=== PATIENT | male | born 1930 | race Asian ===

== ENCOUNTER 2017-08-13 10:25 | Inpatient (IN) | payer OTHER ==
[2017-08-13 10:31] VITALS: BMI 24.6
--- NOTE | 2017-08-13 11:45 | PDOC ---
History of Present Illness - General Chief Complaint: Shortness of Breath Stated Complaint: FOOT SWELLING/PAIN/SHORTNESS OF BREATH Time Seen by Provider: 08/13/17 10:32 - History of Present Illness Initial Comments: 08/13/17 12:25 "The patient is an 86-year-old male, with a significant HTN, gout, and renal insufficiency, who presents to the ED with one week of bilateral lower extremity (worse on the left-side) swelling and shortness of breath on exertion. Pts pain a 4/10 in severity and is worsened when he applies weight to his L foot. Pt experienced similar symptoms in the past and attributed it to gout. He states that the swelling resolved after he took a course of prednisone. He denies any travel or recent injuries. He denies having a history of blood clots or heart failure. Denies F/C. He denies any chest pain or palpitations. He denies any fever, chills, nausea, vomiting, diarrhea, or abdominal pain. Ldr Nurse: Dr. Bebeto Hernandez " Past History - Past Medical History Allergies/Adverse Reactions: Allergies Allergy/AdvReac Type Severity Reaction Status Date / Time No Known Allergies Allergy Verified 08/13/17 10:31 Home Medications: Ambulatory Orders Acetaminophen [Tylenol Arthritis] 650 mg PO Q6H PRN 08/13/17 Amlodipine Besylate 5 mg PO DAILY 08/13/17 Aspirin [ASA -] 81 mg PO DAILY 08/13/17 Sodium Polystyrene Sulfonate [Kayexalate -] 15 gm PO WEEKLY 08/13/17 Allopurinol [Zyloprim -] 100 mg PO BID #60 tablet 08/16/17 Prednisone [Deltasone -] See Taper PO ASDIR #39 tablet 08/16/17 COPD: No HTN: Yes Hypercholesterolemia: Yes Kidney Stones: Yes (Chronic renal failure) Other medical history: Gout, Arthritis - Suicide/Smoking/Psychosocial Hx Smoking History: Never smoked Information on smoking cessation initiated: No Hx Alcohol Use: No Drug/Substance Use Hx: No Substance Use Type: None Review of Systems - Review of Systems Comments:: 08/13/17 12:26 "GENERAL/CONSTITUTIONAL: No fever or chills. No weakness. HEAD, EYES, EARS, NOSE AND THROAT: No change in vision. No ear pain or discharge. No sore throat. CARDIOVASCULAR: (+)shortness of breath. No chest pain. RESPIRATORY: No cough, wheezing, or hemoptysis. GASTROINTESTINAL: No nausea, vomiting, diarrhea or constipation. GENITOURINARY: No dysuria, frequency, or change in urination. MUSCULOSKELETAL: No joint swelling or pain. No neck or back pain. EXTREMITIES: (+)bilateral lower extremity swelling. SKIN: No rash NEUROLOGIC: No headache, vertigo, loss of consciousness, or change in strength/ sensation. ENDOCRINE: No increased thirst. No abnormal weight change. HEMATOLOGIC/LYMPHATIC: No anemia, easy bleeding, or history of blood clots. ALLERGIC/IMMUNOLOGIC: No hives or skin allergy. " *Physical Exam - Vital Signs Last Vital Signs Temp Pulse Resp BP Pulse Ox 98.1 F 120 H 20 160/76 96 08/13/17 10:28 08/13/17 10:28 08/13/17 10:28 08/13/17 10:57 08/13/17 10:57 - Physical Exam Comments: 08/13/17 11:30 "GENERAL: Awake, alert, and fully oriented, in no acute distress HEAD: No signs of trauma EYES: PERRLA, EOMI, sclera anicteric, conjunctiva clear ENT: Auricles normal inspection, hearing grossly normal, nares patent, oropharynx clear without exudates. Moist mucosa NECK: Nontender, no stepoffs, Normal ROM, supple, no lymphadenopathy, JVD, or masses LUNGS: + Bibasilar rales, no wheezes/rhonchi HEART: Regular rate and rhythm, normal S1 and S2, no murmurs, rubs or gallops ABDOMEN: Soft, nontender, normoactive bowel sounds. No guarding, no rebound. No masses EXTREMITIES: +2 PE BLE NEUROLOGICAL: Cranial nerves II through XII intact. 5/5 strength and sensation in all extremities, Normal speech, normal gait SKIN: Warm, Dry, normal turgor, no rashes or lesions noted. " ED Treatment Course - LABORATORY CBC & Chemistry Diagram: 08/16/17 06:58 08/16/17 06:58 - RADIOLOGY Radiology Studies Ordered: Category Date Time Status ANKLE & FOOT-LEFT* [RAD] Stat Radiology 08/13/17 11:08 Ordered CHEST PA & LAT [RAD] Stat Radiology 08/13/17 11:08 Ordered DUPLEX VASCUL US-2LEGS [US] Stat Ultrasound 08/13/17 11:08 Ordered Medical Decision Making - Medical Decision Making 08/13/17 11:32 86 M presenting with L ankle pain, found to have bilateral lower extremity edema and bibasilar rales. Concerning for acute pulmonary edema. Also consider DVT/PE given L ankle pain with slightly asymmetric swelling L>R, with associated tachycardia and tachypnea. - Labs, BNP, ddimer - CXR - LE dopplers 08/13/17 14:33 CBC,CMP WBC 9.7 K/mm3 (4.0-10.0) D 08/13/17 11:00 RBC 4.07 M/mm3 (4.00-5.60) 08/13/17 11:00 Hgb 12.4 GM/dL (11.7-16.9) D 08/13/17 11:00 Hct 39.0 % (35.4-49) D 08/13/17 11:00 MCV 95.9 fl (80-96) 08/13/17 11:00 MCH 30.5 pg (25.7-33.7) 08/13/17 11:00 MCHC 31.8 g/dl (32.0-35.9) L 08/13/17 11:00 RDW 16.4 % (11.9-15.9) H 08/13/17 11:00 Plt Count 373 K/MM3 (134-434) D 08/13/17 11:00 MPV 8.2 fl (7.5-11.1) 08/13/17 11:00 Neutrophils % 75.1 % (42.8-82.8) D 08/13/17 11:00 Lymphocytes % 12.6 % (8-40) D 08/13/17 11:00 Monocytes % 11.1 % (3.8-10.2) H 08/13/17 11:00 Eosinophils % 0.5 % (0-4.5) D 08/13/17 11:00 Basophils % 0.7 % (0-2.0) 08/13/17 11:00 Sodium 140 mmol/L (136-145) 08/13/17 11:00 Potassium 5.1 mmol/L (3.5-5.1) 08/13/17 11:00 Chloride 109 mmol/L (98-107) H 08/13/17 11:00 Carbon Dioxide 21 mmol/L (21-32) 08/13/17 11:00 Anion Gap 10 (8-16) 08/13/17 11:00 BUN 27 mg/dL (7-18) H 08/13/17 11:00 Creatinine 1.7 mg/dL (0.7-1.3) H 08/13/17 11:00 Creat Clearance w eGFR 38.32 (>60) 08/13/17 11:00 Random Glucose 90 mg/dL (74-106) 08/13/17 11:00 Uric Acid 3.9 mg/dL (2.6-7.2) 08/13/17 11:00 Calcium 8.9 mg/dL (8.5-10.1) 08/13/17 11:00 Total Bilirubin 0.4 mg/dL (0.2-1.0) 08/13/17 11:00 AST 10 U/L (15-37) L 08/13/17 11:00 ALT 18 U/L (12-78) 08/13/17 11:00 Alkaline Phosphatase 55 U/L (45-117) 08/13/17 11:00 Creatine Kinase 65 IU/L (39-308) 08/13/17 12:00 Troponin I 0.04 ng/ml (0.00-0.05) 08/13/17 12:00 B-Natriuretic Peptide 1744.79 pg/ml (5-450) H 08/13/17 11:00 Total Protein 7.1 g/dl (6.4-8.2) 08/13/17 11:00 Albumin 3.2 g/dl (3.4-5.0) L 08/13/17 11:00 Trop negative. CXR without evidence of pulmonary edema. However, pt with elevated BNP and cardiomegaly on XR. Consistent with possible new onset CHF. Pt's ddimer also elevated. LE dopplers negative. However, given pt's tachycardia and tachypnea, I still have some suspicion for PE, especially given clear CXR. Will defer CTA for now given elevated Cr. Recommend V/Q scan during admission to r/o PE. Pt started empirically on heparin in ER. Case discussed with Dr. Medina, who is at bedside to evaluate pt. Pt to be admitted to tele. Case discussed in detail with admitting physician including history, physical exam and ancillary studies. Admitting physician has assumed care for the patient and will follow all pending diagnostics and complete the evaluation and treatment. *DC/Admit/Observation/Transfer Diagnosis at time of Disposition: Shortness of breath - Discharge Dispostion Disposition: HOME Condition at time of disposition: Improved Admit: Yes - Prescriptions - Referrals - Patient Instructions - Post Discharge Activity - Attestations Physician Attestion: 08/13/17 15:45 I, Dr. Woodrow Howard MD, attest that this document has been prepared under my direction and personally reviewed by me in its entirety. I further attest, that it accurately reflects all work, treatment, procedures and medical decision -making performed by me.
[2017-08-13 12:10] LABS: VENOUS PC02 40.7 mmHg (38-52); VENOUS PH 7.21 (7.32-7.42)
[2017-08-13 12:11] LABS: BASO % 0.7 % (0-2.0); EOS % 0.5 % (0-4.5); HEMOGLOBIN 12.4 GM/dL (11.7-16.9); LYMPH % 12.6 % (8-40); MCH 30.5 pg (25.7-33.7); MCHC 31.8 g/dl (32.0-35.9); MEAN CELL VOLUME 95.9 fl (80-96); MEAN PLT VOLUME 8.2 fl (7.5-11.1); MONO % 11.1 % (3.8-10.2); NEUT % 75.1 % (42.8-82.8); PLATELET COUNT 373 K/MM3 (134-434); RBC 4.07 M/mm3 (4.00-5.60); RDW 16.4 % (11.9-15.9); VENOUS PO2 59.8 mmHg (28-48); WHITE BLOOD COUNT 9.7 K/mm3 (4.0-10.0)
[2017-08-13 12:15] LABS: ALBUMIN 3.2 g/dl (3.4-5.0); ANION GAP 10 (8-16); BLOOD UREA NITROGEN 27 mg/dL (7-18); CALCIUM 8.9 mg/dL (8.5-10.1); CHLORIDE 109 mmol/L (98-107); CO2 21 mmol/L (21-32); CREATININE 1.7 mg/dL (0.7-1.3); GLUCOSE,RANDOM 90 mg/dL (74-106); POTASSIUM 5.1 mmol/L (3.5-5.1); SGOT/AST 10 U/L (15-37); SGPT/ALT 18 U/L (12-78); SODIUM 140 mmol/L (136-145)
[2017-08-13 12:19] LABS: ALK PHOS 55 U/L (45-117); BILIRUBIN,TOTAL 0.4 mg/dL (0.2-1.0); N-TERMINAL BNP 1744.79 pg/ml (5-450); TOT PROT 7.1 g/dl (6.4-8.2); URIC ACID 3.9 mg/dL (2.6-7.2)
[2017-08-13 12:58] LABS: INR 1.12 (0.82-1.09); PROTHROMBIN TIME (PATIENT) 12.7 SEC (9.98-11.88)
[2017-08-13] MEDS ORDERED: FUROSEMIDE 40 MG/4 ML INJECTABLE VIAL IVPB ONE (14:06)
[2017-08-13] MEDS ORDERED: ENOXAPARIN NA (PORCINE) 80 MG/0.8 ML DISP.SYRIN SQ SCH (14:45)
--- NOTE | 2017-08-13 15:31 | HP ---
CHIEF COMPLAINT: PCP: HISTORY OF PRESENT ILLNESS: ER course was notable for: (1) (2) (3) Recent Travel: PAST MEDICAL HISTORY: PAST SURGICAL HISTORY: Social History: Smoking: Alcohol: Drugs: Family History: Allergies No Known Allergies Allergy (Verified 08/13/17 10:31) HOME MEDICATIONS: Home Medications Medication Instructions Recorded Acetaminophen [Tylenol Arthritis] 650 mg PO Q6H PRN 08/13/17 Allopurinol 300 mg PO DAILY 08/13/17 Amlodipine Besylate 5 mg PO DAILY 08/13/17 Aspirin [ASA -] 81 mg PO DAILY 08/13/17 Lisinopril 10 mg PO DAILY 08/13/17 Sodium Polystyrene Sulfonate 15 gm PO WEEKLY 08/13/17 [Kayexalate] REVIEW OF SYSTEMS CONSTITUTIONAL: Absent: fever, chills, diaphoresis, generalized weakness, malaise, loss of appetite, weight change HEENT: Absent: rhinorrhea, nasal congestion, throat pain, throat swelling, difficulty swallowing, mouth swelling, ear pain, eye pain, visual changes CARDIOVASCULAR: Absent: chest pain, syncope, palpitations, irregular heart rate, lightheadedness , peripheral edema RESPIRATORY: Absent: cough, shortness of breath, dyspnea with exertion, orthopnea, wheezing, stridor, hemoptysis GASTROINTESTINAL: Absent: abdominal pain, abdominal distension, nausea, vomiting, diarrhea, constipation, melena, hematochezia GENITOURINARY: Absent: dysuria, frequency, urgency, hesitancy, hematuria, flank pain, genital pain MUSCULOSKELETAL: Absent: myalgia, arthralgia, joint swelling, back pain, neck pain SKIN: Absent: rash, itching, pallor HEMATOLOGIC/IMMUNOLOGIC: Absent: easy bleeding, easy bruising, lymphadenopathy, frequent infections ENDOCRINE: Absent: unexplained weight gain, unexplained weight loss, heat intolerance, cold intolerance NEUROLOGIC: Absent: headache, focal weakness or paresthesias, dizziness, unsteady gait, seizure, mental status changes, bladder or bowel incontinence PSYCHIATRIC: Absent: anxiety, depression, suicidal or homicidal ideation, hallucinations. PHYSICAL EXAMINATION Vital Signs - 24 hr 08/13/17 08/13/17 08/13/17 10:28 10:57 11:10 Temperature 98.1 F Pulse Rate 120 H Respiratory 20 Rate Blood Pressure 154/84 Blood Pressure 160/76 [Right Arm] O2 Sat by Pulse 97 96 96 Oximetry (%) GENERAL: Awake, alert, and fully oriented, in no acute distress. HEAD: Normal with no signs of trauma. EYES: Pupils equal, round and reactive to light, extraocular movements intact, sclera anicteric, conjunctiva clear. No lid lag. EARS, NOSE, THROAT: Ears normal, nares patent, oropharynx clear without exudates. Moist mucous membranes. NECK: Normal range of motion, supple without lymphadenopathy, JVD, or masses. LUNGS: Breath sounds equal, clear to auscultation bilaterally. No wheezes, and no crackles. No accessory muscle use. HEART: Regular rate and rhythm, normal S1 and S2 without murmur, rub or gallop. ABDOMEN: Soft, nontender, not distended, normoactive bowel sounds, no guarding, no rebound, no masses. No hepatomegaly or splenomegaly. MUSCULOSKELETAL: Normal range of motion at all joints. No bony deformities or tenderness. No CVA tenderness. UPPER EXTREMITIES: 2+ pulses, warm, well-perfused. No cyanosis. No clubbing. No peripheral edema. LOWER EXTREMITIES: 2+ pulses, warm, well-perfused. No calf tenderness. No peripheral edema. NEUROLOGICAL: Cranial nerves II-XII intact. Normal speech. Normal gait. PSYCHIATRIC: Cooperative. Good eye contact. Appropriate mood and affect. SKIN: Warm, dry, normal turgor, no rashes or lesions noted, normal capillary refill. Laboratory Results - last 24 hr 08/13/17 08/13/17 08/13/17 11:00 11:00 11:00 WBC 9.7 D RBC 4.07 Hgb 12.4 D Hct 39.0 D MCV 95.9 MCH 30.5 MCHC 31.8 L RDW 16.4 H Plt Count 373 D MPV 8.2 Neutrophils % 75.1 D Lymphocytes % 12.6 D Monocytes % 11.1 H Eosinophils % 0.5 D Basophils % 0.7 PT with INR INR PTT (Actin FS) 31.0 D-Dimer VBG pH POC VBG pCO2 POC VBG pO2 Mixed VBG HCO3 Sodium 140 Potassium 5.1 Chloride 109 H Carbon Dioxide 21 Anion Gap 10 BUN 27 H Creatinine 1.7 H Creat Clearance w eGFR 38.32 Random Glucose 90 Uric Acid 3.9 Calcium 8.9 Total Bilirubin 0.4 AST 10 L ALT 18 Alkaline Phosphatase 55 Creatine Kinase Troponin I B-Natriuretic Peptide 1744.79 H Total Protein 7.1 Albumin 3.2 L Blood Type Antibody Screen 08/13/17 08/13/17 08/13/17 11:00 11:00 11:07 WBC RBC Hgb Hct MCV MCH MCHC RDW Plt Count MPV Neutrophils % Lymphocytes % Monocytes % Eosinophils % Basophils % PT with INR 12.70 H INR 1.12 PTT (Actin FS) D-Dimer VBG pH 7.21 L* POC VBG pCO2 40.7 POC VBG pO2 59.8 H Mixed VBG HCO3 15.6 L Sodium Potassium Chloride Carbon Dioxide Anion Gap BUN Creatinine Creat Clearance w eGFR Random Glucose Uric Acid Calcium Total Bilirubin AST ALT Alkaline Phosphatase Creatine Kinase Troponin I B-Natriuretic Peptide Total Protein Albumin Blood Type A POSITIVE Antibody Screen Negative 08/13/17 08/13/17 11:31 12:00 WBC RBC Hgb Hct MCV MCH MCHC RDW Plt Count MPV Neutrophils % Lymphocytes % Monocytes % Eosinophils % Basophils % PT with INR INR PTT (Actin FS) D-Dimer 851 H VBG pH POC VBG pCO2 POC VBG pO2 Mixed VBG HCO3 Sodium Potassium Chloride Carbon Dioxide Anion Gap BUN Creatinine Creat Clearance w eGFR Random Glucose Uric Acid Calcium Total Bilirubin AST ALT Alkaline Phosphatase Creatine Kinase 65 Troponin I 0.04 B-Natriuretic Peptide Total Protein Albumin Blood Type Antibody Screen ASSESSMENT/PLAN:
[2017-08-13] MEDS ORDERED: HEPARIN NA (PORCINE) 5,000 UNITS/ML 1ML VIAL IVPUSH PRN ×2 (15:50)
[2017-08-13] MEDS ORDERED: HEPARIN SOD,PORK IN 0.45% NACL 25,000 UNITS/500 ML INFUS.BAG IVPB SCH ×2 (16:00→17:10)
[2017-08-13] MEDS ORDERED: HEPARIN NA (PORCINE) 5,000 UNITS/ML 1ML VIAL ONE (16:16)
[2017-08-13] MEDS ORDERED: HEPARIN INFUSION - 25,000 UNITS/500 ML INFUS.BAG IVPB ONE (16:16)
--- NOTE | 2017-08-13 16:51 | HP ---
CHIEF COMPLAINT: L foot pain Non Destructive Evaluation Specialist: Dr. 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 He has no issues with bearing weight, but endorses chronic ankle swelling. For the past week, this ankle swelling has progressed up to his knees bilaterally. Within that week he also has noticed progressive dyspnea on exertion. He has no history of CHF, years ago has had normal Echos and stress tests. Endorses sleeping with 2 pillows due to "comfort". He denies any chest pain or tightness. Denies history of clots, family history of clots, malignancy. Denies recent immobility. In the ER he was tachycardic with BP 150s/80s. His EKG was notable for S1Q3T3 change without ST/T wave changes. He has mild d-dimer in the 800s, but has negative troponins and is hemodynamically stable. BLLE Duplex was negative. He was prophylactically given treatment dose Lovenox 1mg/kg SQ. Also has BNP of ~ 1800 with mild metabolic acidosis pH 7.21. Given dose of IV Lasix. CXR shows mild pulmonary congestion on my read. Recent Travel: Denies PAST MEDICAL HISTORY: HTN, Gout, CKD Social History: Smoking: Denies Alcohol: Denies Drugs: Denies Family History: No family hx of clots. +Cardiac disease Allergies: No Known Allergies Allergy (Verified 08/13/17 10:31) HOME MEDICATIONS: Home Medications Medication Instructions Recorded Acetaminophen [Tylenol Arthritis] 650 mg PO Q6H PRN 08/13/17 Allopurinol 300 mg PO DAILY 08/13/17 Amlodipine Besylate 5 mg PO DAILY 08/13/17 Aspirin [ASA -] 81 mg PO DAILY 08/13/17 Lisinopril 10 mg PO DAILY 08/13/17 Sodium Polystyrene Sulfonate 15 gm PO WEEKLY 08/13/17 [Kayexalate] REVIEW OF SYSTEMS CONSTITUTIONAL: Absent: fever, chills, diaphoresis, generalized weakness, malaise, loss of appetite, weight change HEENT: Absent: rhinorrhea, nasal congestion, throat pain, throat swelling, difficulty swallowing, mouth swelling, ear pain, eye pain, visual changes CARDIOVASCULAR: Absent: chest pain, syncope, palpitations, irregular heart rate, lightheadedness , peripheral edema RESPIRATORY: Absent: cough, shortness of breath, dyspnea with exertion, orthopnea, wheezing, stridor, hemoptysis GASTROINTESTINAL: Absent: abdominal pain, abdominal distension, nausea, vomiting, diarrhea, constipation, melena, hematochezia GENITOURINARY: Absent: dysuria, frequency, urgency, hesitancy, hematuria, flank pain, genital pain MUSCULOSKELETAL: Absent: myalgia, arthralgia, joint swelling, back pain, neck pain SKIN: Absent: rash, itching, pallor HEMATOLOGIC/IMMUNOLOGIC: Absent: easy bleeding, easy bruising, lymphadenopathy, frequent infections ENDOCRINE: Absent: unexplained weight gain, unexplained weight loss, heat intolerance, cold intolerance NEUROLOGIC: Absent: headache, focal weakness or paresthesias, dizziness, unsteady gait, seizure, mental status changes, bladder or bowel incontinence PSYCHIATRIC: Absent: anxiety, depression, suicidal or homicidal ideation, hallucinations. 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 NEURO: CN 2-12 intact, no sensation or MSK deficits Laboratory Last Values WBC 9.7 K/mm3 (4.0-10.0) D 08/13/17 11:00 RBC 4.07 M/mm3 (4.00-5.60) 08/13/17 11:00 Hgb 12.4 GM/dL (11.7-16.9) D 08/13/17 11:00 Hct 39.0 % (35.4-49) D 08/13/17 11:00 MCV 95.9 fl (80-96) 08/13/17 11:00 MCH 30.5 pg (25.7-33.7) 08/13/17 11:00 MCHC 31.8 g/dl (32.0-35.9) L 08/13/17 11:00 RDW 16.4 % (11.9-15.9) H 08/13/17 11:00 Plt Count 373 K/MM3 (134-434) D 08/13/17 11:00 MPV 8.2 fl (7.5-11.1) 08/13/17 11:00 Neutrophils % 75.1 % (42.8-82.8) D 08/13/17 11:00 Lymphocytes % 12.6 % (8-40) D 08/13/17 11:00 Monocytes % 11.1 % (3.8-10.2) H 08/13/17 11:00 Eosinophils % 0.5 % (0-4.5) D 08/13/17 11:00 Basophils % 0.7 % (0-2.0) 08/13/17 11:00 PT with INR 12.70 SEC (9.98-11.88) H 08/13/17 11:00 INR 1.12 (0.82-1.09) 08/13/17 11:00 PTT (Actin FS) 31.0 SECONDS (26.9-34.4) 08/13/17 11:00 D-Dimer 851 ng/ml (<200-235) H 08/13/17 11:31 VBG pH 7.21 (7.32-7.42) L* 08/13/17 11:00 POC VBG pCO2 40.7 mmHg (38-52) 08/13/17 11:00 POC VBG pO2 59.8 mmHg (28-48) H 08/13/17 11:00 Mixed VBG HCO3 15.6 meq/L (19-25) L 08/13/17 11:00 Sodium 140 mmol/L (136-145) 08/13/17 11:00 Potassium 5.1 mmol/L (3.5-5.1) 08/13/17 11:00 Chloride 109 mmol/L (98-107) H 08/13/17 11:00 Carbon Dioxide 21 mmol/L (21-32) 08/13/17 11:00 Anion Gap 10 (8-16) 08/13/17 11:00 BUN 27 mg/dL (7-18) H 08/13/17 11:00 Creatinine 1.7 mg/dL (0.7-1.3) H 08/13/17 11:00 Creat Clearance w eGFR 38.32 (>60) 08/13/17 11:00 Random Glucose 90 mg/dL (74-106) 08/13/17 11:00 Uric Acid 3.9 mg/dL (2.6-7.2) 08/13/17 11:00 Calcium 8.9 mg/dL (8.5-10.1) 08/13/17 11:00 Total Bilirubin 0.4 mg/dL (0.2-1.0) 08/13/17 11:00 AST 10 U/L (15-37) L 08/13/17 11:00 ALT 18 U/L (12-78) 08/13/17 11:00 Alkaline Phosphatase 55 U/L (45-117) 08/13/17 11:00 Creatine Kinase 65 IU/L (39-308) 08/13/17 12:00 Troponin I 0.04 ng/ml (0.00-0.05) 08/13/17 12:00 B-Natriuretic Peptide 1744.79 pg/ml (5-450) H 08/13/17 11:00 Total Protein 7.1 g/dl (6.4-8.2) 08/13/17 11:00 Albumin 3.2 g/dl (3.4-5.0) L 08/13/17 11:00 Blood Type A POSITIVE 08/13/17 11:07 Antibody Screen Negative 08/13/17 11:07 Home Medication List Medication Instructions Recorded Confirmed Type Acetaminophen [Tylenol Arthritis] 650 mg PO Q6H PRN 08/13/17 08/13/17 History Allopurinol 300 mg PO DAILY 08/13/17 08/13/17 History Amlodipine Besylate 5 mg PO DAILY 08/13/17 08/13/17 History Aspirin [ASA -] 81 mg PO DAILY 08/13/17 08/13/17 History Lisinopril 10 mg PO DAILY 08/13/17 08/13/17 History Sodium Polystyrene Sulfonate 15 gm PO WEEKLY 08/13/17 08/13/17 History [Kayexalate] Active Medications Generic Name Dose Route Start Last Admin Trade Name Freq PRN Reason Stop Dose Admin Acetaminophen 650 mg 08/13/17 16:06 Tylenol - PO Q6H PRN PAIN Allopurinol 300 mg 08/14/17 10:00 Zyloprim - PO DAILY [facility] Amlodipine Besylate 5 mg 08/14/17 10:00 Norvasc - PO DAILY [facility] Aspirin 81 mg 08/14/17 10:00 Asa - PO DAILY [facility] Heparin Sodium (Porcine) 1,000 unit 08/13/17 15:50 Heparin - IVPUSH PRN PRN Heparin Heparin Sodium (Porcine) 5,000 unit 08/13/17 15:50 08/13/17 16:36 Heparin - IVPUSH 5,000 unit PRN PRN Administration Heparin HEPARIN SOD,PORK IN 0.45% NACL 25,000 units in 500 mls @ 20 mls/hr 08/13/17 17 :10 Heparin-1/2ns 25,000 Units/500 IVPB TITR JEISON Protocol 1,000 UNITS/HR Lisinopril 10 mg 08/14/17 10:00 Prinivil PO DAILY [facility] Sodium Polystyrene Sulfonate 15 gm 08/13/17 16:15 Kayexalate - PO WEEKLY [facility] ASSESSMENT/PLAN: 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 # L Foot Pain - Consistent with prior gouty flairs. L Foot/ankle XR negative for fracture. Will continue Allopurinol and start Tylenol 650 PRN. Currently feeling much better. Will order Physical Therapy # SOB r/o PE - Likely secondary to pulmonary congestion from R heart strain, consistent with EKG S1Q3T3 pattern. This could be secondary to possible subacute PE although patient is low risk with Well's score is 1.5 and D-dimer normal for patient's age. Due to the suspicion, he received Lovenox 1mg/kg load, and we will start Hep gtt w/ PE protocol. Will obtain V/Q due to CKD. If patient has a PE, it is unprovoked and he will need hypercoag workup. Will obtain Echo to assess R heart strain. # Sinus Tachycardia - Could be secondary to the possible subacute PE. Unlikely due to pain, since pain is now relieved. Preliminary echo results show possible density near mitral valve cannot r/o vegetation. Patient is not septic, and without a murmur , but will obtain blood cultures to be sure there is no endocarditis. # CKD Stage 3 - Cr is 1.7, around patient's baseline of 1.8-2.1. Continue to monitor # Hx of HTN - Can continue Lisinopril 10 and Norvasc 5 since patient is mildly hypertensive. # FEN - No IVF, elec wnl, sodium controlled diet # PPx - Heparin gtt PE protocol, no GI prophylaxis, PT ordered # Dispo - Admit to Tele. Await results of Echo and V/Q. d/w Dr Ba and Dr Mauricio Negron MD - PGY1 Internal Medicine Resident Visit type - Emergency Visit Emergency Visit: No - New Patient This patient is new to me today: No - Critical Care Critical Care patient: No
--- NOTE | 2017-08-13 16:51 | MSN ---
Progress Note (short form) - Note Progress Note: SUBJECTIVE CC: L foot pain and B/L LE swelling HPI: 86 y/o M with PMHx HTN, gout, CKD stage III, who presented to ED with c/o of L foot pain, B/L leg swelling, and dyspnea on exertion. He states the B/L leg swelling and MANCILLA on exertion started 1 week ago and swelling has progressively extended up to his knees. He has been sleeping with 2 pillows at night for "years" and attributes it to comfort/habit. He reports chronic pain in his feet 2/2 gout; however, this severe pain in L plantar foot began one week ago and is worse in the AM. Pain worsens with pressure and rates it a 4/ 10. He states he has had this pain before during gout attacks and typically experiences swelling in his ankles which successfully resolves with prednisone and Tylenol arthritis. Pt denies chest pain, orthopnea, nausea, vomiting, hx blood clots, hx heart failure, recent travel, and prolonged periods of being immobile. Pt was given 1 dose Lasix in ER and 1 dose Lovenox SQ for empiric tx of PE. Imaging was done; detailed below. OBJECTIVE Last Vital Signs Temp Pulse Resp BP Pulse Ox 98.1 F 120 H 20 160/76 96 08/13/17 10:28 08/13/17 10:28 08/13/17 10:28 08/13/17 10:57 08/13/17 11:10 Eyes: EOMI. PERRL. Neck: B/L JVD, worse when lying flat. Heart: Tachycardic rate; regular rhythm. S1, S2. No murmurs appreciated. Lungs: Mild expiratory wheezing and crackles in bibasilar lobes. Upper lobes clear to auscultation. Abdomen: Nondistended, nontender to palpation. Extremities: 2+ pitting edema at b/l medial malleoli; 1+ pitting edema up to b/ l patella. DP pulse 2+ b/l. No cyanosis or clubbing noted. No edema noted on b/ l UE. 5/5 muscle strength throughout UE and LE. 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 Tophi noted on R and L hallux. Tophi on fingers. CBC, BMP 08/13/17 11:00 08/13/17 11:00 Anion Gap Anion Gap 10 (8-16) 08/13/17 11:00 Abnormal Lab Results 08/13/17 08/13/17 08/13/17 11:00 11:00 11:00 MCHC 31.8 L RDW 16.4 H Monocytes % 11.1 H PT with INR 12.70 H D-Dimer ABG pCO2 at Pt Temp ABG HCO3 ABG O2 Content ABG Base Excess VBG pH POC VBG pO2 Mixed VBG HCO3 Chloride 109 H BUN 27 H Creatinine 1.7 H AST 10 L B-Natriuretic Peptide 1744.79 H Albumin 3.2 L 08/13/17 08/13/17 08/13/17 11:00 11:31 16:50 MCHC RDW Monocytes % PT with INR D-Dimer 851 H ABG pCO2 at Pt Temp 30.7 L ABG HCO3 18.8 L ABG O2 Content 12.9 L ABG Base Excess -4.7 L VBG pH 7.21 L* POC VBG pO2 59.8 H Mixed VBG HCO3 15.6 L Chloride BUN Creatinine AST B-Natriuretic Peptide Albumin ER significant for: 1. Doppler LE: Negative 2. Troponin: Negative 3. CXR: No evidence of pulmonary edema. Mild vascular congestion b/l. Cardiomegaly. 4. BNP: elevated 5. EKG: S1Q3T3 pattern. Tachycardic at 120 BPM. Sinus rhythm. Active Medications Generic Name Dose Route Start Last Admin Trade Name Freq PRN Reason Stop Dose Admin Acetaminophen 650 mg 08/13/17 16:06 Tylenol - PO Q6H PRN PAIN Allopurinol 300 mg 08/14/17 10:00 Zyloprim - PO DAILY [facility] Amlodipine Besylate 5 mg 08/14/17 10:00 Norvasc - PO DAILY [facility] Aspirin 81 mg 08/14/17 10:00 Asa - PO DAILY [facility] Heparin Sodium (Porcine) 1,000 unit 08/13/17 15:50 Heparin - IVPUSH PRN PRN Heparin Heparin Sodium (Porcine) 5,000 unit 08/13/17 15:50 08/13/17 16:36 Heparin - IVPUSH 5,000 unit PRN PRN Administration Heparin HEPARIN SOD,PORK IN 0.45% NACL 25,000 units in 500 mls @ 20 mls/hr 08/13/17 17 :10 Heparin-1/2ns 25,000 Units/500 IVPB TITR JEISON Protocol 1,000 UNITS/HR Lisinopril 10 mg 08/14/17 10:00 Prinivil PO DAILY [facility] Sodium Polystyrene Sulfonate 15 gm 08/13/17 16:15 Kayexalate - PO WEEKLY [facility] Home Medications Medication Instructions Recorded Acetaminophen [Tylenol Arthritis] 650 mg PO Q6H PRN 08/13/17 Allopurinol 300 mg PO DAILY 08/13/17 Amlodipine Besylate 5 mg PO DAILY 08/13/17 Aspirin [ASA -] 81 mg PO DAILY 08/13/17 Lisinopril 10 mg PO DAILY 08/13/17 Sodium Polystyrene Sulfonate 15 gm PO WEEKLY 08/13/17 [Kayexalate] ASSESSMENT 86 y/o M with PMHx HTN, gout, CKD stage III, who presented to ED with c/o of L foot pain, B/L leg swelling, and dyspnea on exertion with 1 week duration. EKG findings are concerning for R heart strain from possible PE leading to R heart failure and b/l LE edema, b/l JVD. PLAN 1. 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 SOB, B/L LE edema likely 2/2 unprovoked PE - heparin gtt started in ER; will change to PE dosage for suspected unprovoked PE - PTT ordered; need to f/u and monitor for HIT - S1Q3T3 on EKG; tachycardic, Wells 1.5 - Echo, V/Q scan ordered to evaluate for PE; no CTA since pt has CKD with elevated Cr 3. CKD - urine sodium - Mg2+, PO4-, BMP to evaluate kidney function 4. HTN - Continue home Norvasc 5, Lisinopril 10; high BP in ER, will need to adjust BP meds accordingly 5. Gout - Continue home Allopurinol - Tylenol PRN pain; pain well controlled as per pt 6. FEN - fluids: no fluids necessary - electrolytes: wnl, monitor - nutrition: low sodium diet Dispo: Gillian Johnston, OMS-3
--- NOTE | 2017-08-13 17:07 | HP ---
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 Patient has a history of gout effected left great tow and ankle, which he presumed that was where pain and swelling was coming from. After no improvement from steroid trial and increasing shortness of breath , he was then provoke dot come to the hospital. He denies chest pain, nausea, vomiting, numbness tingling, fever chills or associated symptoms. He denies sedentary lifestyle. ER course was notable for: ECG sinus tachycradia; S1Q2T3 inversion; d dimer elevated; cxr with cardiomegaly ; given lasix 40IVP x1 in ED. Recent Travel: no PAST MEDICAL HISTORY: HTN, GOUT, CKD stage 3B PAST SURGICAL HISTORY: Social History: Smoking:no Alcohol:no Drugs: no Family History: Allergies No Known Allergies Allergy (Verified 08/13/17 10:31) HOME MEDICATIONS: Home Medications Medication Instructions Recorded Acetaminophen [Tylenol Arthritis] 650 mg PO Q6H PRN 08/13/17 Allopurinol 300 mg PO DAILY 08/13/17 Amlodipine Besylate 5 mg PO DAILY 08/13/17 Aspirin [ASA -] 81 mg PO DAILY 08/13/17 Lisinopril 10 mg PO DAILY 08/13/17 Sodium Polystyrene Sulfonate 15 gm PO WEEKLY 08/13/17 [Kayexalate] REVIEW OF SYSTEMS CONSTITUTIONAL: Absent: fever, chills, diaphoresis, generalized weakness, malaise, loss of appetite, weight change HEENT: Absent: rhinorrhea, nasal congestion, throat pain, throat swelling, difficulty swallowing, mouth swelling, ear pain, eye pain, visual changes CARDIOVASCULAR: Positive: palpations, b/l leg swelling Absent: chest pain, syncope, palpitations, irregular heart rate, lightheadedness , peripheral edema RESPIRATORY: Absent: cough, shortness of breath, dyspnea with exertion, orthopnea, wheezing, stridor, hemoptysis GASTROINTESTINAL: Absent: abdominal pain, abdominal distension, nausea, vomiting, diarrhea, constipation, melena, hematochezia GENITOURINARY: Absent: dysuria, frequency, urgency, hesitancy, hematuria, flank pain, genital pain MUSCULOSKELETAL: Positive: Left foot pain Absent: myalgia, arthralgia, joint swelling, back pain, neck pain SKIN: Absent: rash, itching, pallor HEMATOLOGIC/IMMUNOLOGIC: Absent: easy bleeding, easy bruising, lymphadenopathy, frequent infections ENDOCRINE: Absent: unexplained weight gain, unexplained weight loss, heat intolerance, cold intolerance NEUROLOGIC: Absent: headache, focal weakness or paresthesias, dizziness, unsteady gait, seizure, mental status changes, bladder or bowel incontinence PSYCHIATRIC: Absent: anxiety, depression, suicidal or homicidal ideation, hallucinations. PHYSICAL EXAMINATION Vital Signs - 24 hr 08/13/17 08/13/17 08/13/17 10:28 10:57 11:10 Temperature 98.1 F Pulse Rate 120 H Respiratory 20 Rate Blood Pressure 154/84 Blood Pressure 160/76 [Right Arm] O2 Sat by Pulse 97 96 96 Oximetry (%) GENERAL: Awake, alert, and fully oriented, in no acute distress. HEAD: Normal with no signs of trauma. EYES: Pupils equal, round and reactive to light, extraocular movements intact, sclera anicteric, conjunctiva clear. No lid lag. EARS, NOSE, THROAT: Ears normal, nares patent, oropharynx clear without exudates. Moist mucous membranes. NECK: Normal range of motion, supple without lymphadenopathy, JVD, or masses. LUNGS: Breath sounds equal, d/l basal rales. No wheezes, and no crackles. No accessory muscle use. HEART: sinus tach; regular rhythm, normal S1 and S2 without murmur, rub or gallop. ABDOMEN: Soft, nontender, not distended, normoactive bowel sounds, no guarding, no rebound, no masses. No hepatomegaly or splenomegaly. MUSCULOSKELETAL: Normal range of motion at all joints. No bony deformities or tenderness. No CVA tenderness. Left foot pain with palpation of palmar aspect UPPER EXTREMITIES: 2+ pulses, warm, well-perfused. No cyanosis. No clubbing. Bilateral mild edema; L>R of LE; small area of right great toe erythema; tener to touch LOWER EXTREMITIES: 2+ pulses, warm, well-perfused. No calf tenderness. No peripheral edema. NEUROLOGICAL: Cranial nerves II-XII intact. Normal speech. strength 5/5 throughout; all reflexes intact; sensation intact throughout; gait not observed PSYCHIATRIC: Cooperative. Good eye contact. Appropriate mood and affect. SKIN: Warm, dry, normal turgor, no rashes or lesions noted, normal capillary refill. Laboratory Results - last 24 hr 08/13/17 08/13/17 08/13/17 11:00 11:00 11:00 WBC 9.7 D RBC 4.07 Hgb 12.4 D Hct 39.0 D MCV 95.9 MCH 30.5 MCHC 31.8 L RDW 16.4 H Plt Count 373 D MPV 8.2 Neutrophils % 75.1 D Lymphocytes % 12.6 D Monocytes % 11.1 H Eosinophils % 0.5 D Basophils % 0.7 PT with INR INR PTT (Actin FS) 31.0 D-Dimer VBG pH POC VBG pCO2 POC VBG pO2 Mixed VBG HCO3 Sodium 140 Potassium 5.1 Chloride 109 H Carbon Dioxide 21 Anion Gap 10 BUN 27 H Creatinine 1.7 H Creat Clearance w eGFR 38.32 Random Glucose 90 Uric Acid 3.9 Calcium 8.9 Total Bilirubin 0.4 AST 10 L ALT 18 Alkaline Phosphatase 55 Creatine Kinase Troponin I B-Natriuretic Peptide 1744.79 H Total Protein 7.1 Albumin 3.2 L Blood Type Antibody Screen 08/13/17 08/13/17 08/13/17 11:00 11:00 11:07 WBC RBC Hgb Hct MCV MCH MCHC RDW Plt Count MPV Neutrophils % Lymphocytes % Monocytes % Eosinophils % Basophils % PT with INR 12.70 H INR 1.12 PTT (Actin FS) D-Dimer VBG pH 7.21 L* POC VBG pCO2 40.7 POC VBG pO2 59.8 H Mixed VBG HCO3 15.6 L Sodium Potassium Chloride Carbon Dioxide Anion Gap BUN Creatinine Creat Clearance w eGFR Random Glucose Uric Acid Calcium Total Bilirubin AST ALT Alkaline Phosphatase Creatine Kinase Troponin I B-Natriuretic Peptide Total Protein Albumin Blood Type A POSITIVE Antibody Screen Negative 08/13/17 08/13/17 11:31 12:00 WBC RBC Hgb Hct MCV MCH MCHC RDW Plt Count MPV Neutrophils % Lymphocytes % Monocytes % Eosinophils % Basophils % PT with INR INR PTT (Actin FS) D-Dimer 851 H VBG pH POC VBG pCO2 POC VBG pO2 Mixed VBG HCO3 Sodium Potassium Chloride Carbon Dioxide Anion Gap BUN Creatinine Creat Clearance w eGFR Random Glucose Uric Acid Calcium Total Bilirubin AST ALT Alkaline Phosphatase Creatine Kinase 65 Troponin I 0.04 B-Natriuretic Peptide Total Protein Albumin Blood Type Antibody Screen Current Medications Generic Name Dose Route Start Last Admin Trade Name Freq PRN Reason Stop Dose Admin Acetaminophen 650 mg 08/13/17 16:06 Tylenol - PO Q6H PRN PAIN Allopurinol 300 mg 08/14/17 10:00 Zyloprim - PO DAILY [facility] Amlodipine Besylate 5 mg 08/14/17 10:00 Norvasc - PO DAILY [facility] Aspirin 81 mg 08/14/17 10:00 Asa - PO DAILY [facility] Heparin Sodium (Porcine) 1,000 unit 08/13/17 15:50 Heparin - IVPUSH PRN PRN Heparin Heparin Sodium (Porcine) 5,000 unit 08/13/17 15:50 08/13/17 16:36 Heparin - IVPUSH 5,000 unit PRN PRN Administration Heparin HEPARIN SOD,PORK IN 0.45% NACL 25,000 units in 500 mls @ 20 mls/hr 08/13/17 16 :00 08/13/17 16:36 Heparin-1/2ns 25,000 Units/500 IVPB 1,000 units/hr TITR JEISON 20 mls/hr Protocol Administration 1,000 UNITS/HR Lisinopril 10 mg 08/14/17 10:00 Prinivil PO DAILY [facility] Sodium Polystyrene Sulfonate 15 gm 08/13/17 16:15 Kayexalate - PO WEEKLY [facility] ASSESSMENT/PLAN: 86 year old male with a past medical history of hypertension presents with shortness of breath and bilateral leg swelling for the past few days. #shortness of breath secondary to possible CHF/PE: -ECG with S1Q2T3 inversion; sinus tachycardia; d dimer elevated -stat V/Q scan ; (cannot get CTA due to CKD) -stat echo : right heart strain; with pulmonary hypertension; some diastolic dysfunction; small pericardial loculated effusion; cannot r/o vegetation of mitral valve; (this was read by Dr. Soliz while echo was being done:official report pending) -start heparin drip; serial PTT serial troponins -will get blood cultures; in light of possible veg on valve -revival clerk; daily weight; I/Os -Cardio/Pulm consulted -discuss case with IR; eval for TPA if there is PE #Right foot pain with mild leukocytosis; possible secondary to gout attack vs cellulitis vs DVT: -gout attack less likely; uric acid 3.9 (elevated is >5) -elevated d dimer; B/L Doppler negative; getting VQ; on heparin drip -some erythema of right toe; will monitor off antibiotics for now; monitor WBC; fever; bld cultures #hypertension: -continue home norvasc and lisinopril as above Fluids: po monitor; Electrolytes: wnl Diet: cardiac diet VTE: on heparin drip Disposition: telemetry; pending v/q scan ; r/o PE; on heparin drip Case discussed with attending Dr. Ba Visit type - Emergency Visit Emergency Visit: Yes ED Registration Date: 08/13/17 Care time: The patient presented to the Emergency Department on the above date and was hospitalized for further evaluation of their emergent condition. - New Patient This patient is new to me today: Yes Date on this admission: 08/13/17 - Critical Care Critical Care patient: No
[2017-08-13 17:09] LABS: ARTERIAL BLD GAS O2 SATURATION 96.9 % (90-98.9); ARTERIAL BLOOD GAS BASE EXCESS -4.7 meq/l (-2-2); ARTERIAL BLOOD GAS PCO2 30.7 mmHg (35-45); ARTERIAL BLOOD GAS PO2 86.5 mmHg (68-100); CARBOXYHEMOGLOBIN 1.1 gm% (0.5-2.0)
[2017-08-13 17:14] LABS: ALLENS TEST POSITIVE
--- NOTE | 2017-08-13 18:05 | PN ---
Teaching Attending Note Name of Resident: Kristi Negron ATTENDING PHYSICIAN STATEMENT I saw and evaluated the patient. I reviewed the resident's note and discussed the case with the resident. I agree with the resident's findings and plan as documented. SUBJECTIVE:86yo M with PMH CKD stage III, HTN, and gout presented to the ER with worsening pedal edema and dyspnea on exertion x1 week. states he chronically has foot swelling and was being treated for gout in his R foot with allopurinol and steroids and then started to have pain in his L foot. over the past week he developed edema travelling up his legs. denies CP, fever, chills, N /V/C/D OBJECTIVE: Last Vital Signs Temp Pulse Resp BP Pulse Ox 98.1 F 120 H 20 160/76 96 08/13/17 10:28 08/13/17 10:28 08/13/17 10:28 08/13/17 10:57 08/13/17 11:10 General NAD CV S1 S2 tacycardic no murmur Lungs coarse rhonchi, crackles at the bases Abdomen soft NT/ND Extremities 1+ pitting edema B/L LE, pain to L medial malleolus negative rikki sign ASSESSMENT AND PLAN: 86yo M with PMH CKD stage III, HTN, and gout presented to the ER with worsening pedal edema and dyspnea on exertion x1 week 1. SOB- tele admission. high concern for PE however can not rule out new onset CHF due to cardiomegaly seen on CXR. elevated ddimer, negative dopplers, received lasix start heparin ggt. unable to obtain CTA due to CKD. stat bedside echo done showing elevated R heart pressures but no evidence of heart strain. stat VQ scan to evaluate and possible IR intervention. hold further lasix at this time until formal VQ scan done. f/u formal echo report. Cardio and pulmonary consulted 2. Sinus tachycardia- likely due to PE. EKG showing S1Q3T3 consistent with PE. trend cardiac enzymes. check TSH, continuous cardiac monitoring 3. NAG acidosis- check lactic acid. does not have hyperkalemia but takes kayexylate regularly. check urine Na, ABG 4. HTN- start lisinopril and norvasc 5. CKD stage III- at baseline. 6. Gout- on allopurinol 7. DVT ppx- hep ggt
[2017-08-13] MEDS ORDERED: FUROSEMIDE 40 MG/4 ML INJECTABLE VIAL ONE (18:22)
[2017-08-13 18:45] LABS: URINE APPEARANCE CLEAR; URINE BILIRUBIN NEGATIVE (NEGATIVE); URINE BLOOD 1+ (NEGATIVE); URINE COLOR LTYELLOW; URINE GLUCOSE (UA) NEGATIVE (NEGATIVE); URINE KETONE NEGATIVE (NEGATIVE); URINE LEUK ESTERASE NEGATIVE (NEGATIVE); URINE NITRITE NEGATIVE (NEGATIVE); URINE UROBILINOGEN NEGATIVE mg/dL (0.2-1.0)
[2017-08-13 18:49] LABS: URINE PROTEIN 1+ (NEGATIVE)
[2017-08-13 19:04] LABS: URINE BACTERIA RARE /hpf (NONE SEEN); URINE HYALINE CAST 2 /lpf; URINE MUCUS RARE
[2017-08-13] MEDS: ACETAMINOPHEN 325 MG TABLET (FP) PO PRN (20:08)
[2017-08-13] MEDS: HEPARIN NA (PORCINE) 5,000 UNITS/ML 1ML VIAL SQ SCH (21:41)
--- NOTE | 2017-08-13 23:08 | PN ---
Progress Note (short form) - Note Progress Note: Hospitalist team paged at 11:04 that patient's second troponin returned 0.65, an incease from 0.04 earlier. Nurse reported patient sleeping comfortably in bed and not experiencing any chest pain. Will get stat EKG and evaluate patient.
[2017-08-14] MEDS: HEPARIN NA (PORCINE) 5,000 UNITS/ML 1ML VIAL SQ SCH ×3 (06:06→21:51)
[2017-08-14] MEDS: ACETAMINOPHEN 325 MG TABLET (FP) PO PRN ×2 (06:10→19:07)
[2017-08-14 07:10] LABS: BASO % 0.7 % (0-2.0); EOS % 1.1 % (0-4.5); HEMATOCRIT 27.3 % (35.4-49); HEMOGLOBIN 8.8 GM/dL (11.7-16.9); LYMPH % 17.4 % (8-40); MCH 30.7 pg (25.7-33.7); MCHC 32.4 g/dl (32.0-35.9); MEAN PLT VOLUME 8.3 fl (7.5-11.1); MONO % 11.8 % (3.8-10.2); PLATELET COUNT 371 K/MM3 (134-434); RBC 2.87 M/mm3 (4.00-5.60); RDW 15.4 % (11.9-15.9); WHITE BLOOD COUNT 10.1 K/mm3 (4.0-10.0)
[2017-08-14 07:49] LABS: ALBUMIN 2.7 g/dl (3.4-5.0); ANION GAP 10 (8-16); BILIRUBIN,TOTAL 0.4 mg/dL (0.2-1.0); BLOOD UREA NITROGEN 23 mg/dL (7-18); CALCIUM 8.4 mg/dL (8.5-10.1); CHLORIDE 111 mmol/L (98-107); CO2 20 mmol/L (21-32); CREATININE 1.6 mg/dL (0.7-1.3); GLUCOSE,RANDOM 90 mg/dL (74-106); MAGNESIUM 1.8 mg/dL (1.8-2.4); PHOSPHOROUS 3.6 mg/dL (2.5-4.9); SGOT/AST 14 U/L (15-37); SGPT/ALT 16 U/L (12-78); SODIUM 141 mmol/L (136-145); TOT PROT 5.9 g/dl (6.4-8.2)
[2017-08-14 07:57] LABS: ALK PHOS 47 U/L (45-117)
[2017-08-14] MEDS ORDERED: ALLOPURINOL 300 MG TABLET (FP) PO SCH (10:00)
[2017-08-14] MEDS: ASPIRIN 81 MG CHEWABLE TABLETS PO SCH (10:10)
[2017-08-14] MEDS: amLODIPine BESYLATE 5 MG TABLET (FP) PO SCH (10:10)
[2017-08-14] MEDS: LISINOPRIL 10 MG TABLET (FP) PO SCH (10:10)
--- NOTE | 2017-08-14 11:19 | CONSULT ---
Consult Consult Specialty:: Medicine Reason for Consultation:: Dyspnea - History of Present Illness Chief Complaint: Dyspnea History of Present Illness: 86 yo male CKD and gout Presents with dyspnea, edema left foot pain and elevated BNP Known PMHx of HTN, Gout, CKD Stage 3, who initially presented to the ER with L foot pain consistent with prior gout flairs but with progressive dyspnea on exertion. He has no history of CHF, years ago has had normal Echos and stress tests. Endorses sleeping with 2 pillows due to "comfort". He denies any chest pain or tightness. Denies history of clots, family history of clots, malignancy. Denies recent immobility. In the ER he was tachycardic with BP 150s/80s. His EKG was notable for S1Q3T3 change without ST/T wave changes. He has mild d-dimer in the 800s, but has negative troponins and is hemodynamically stable. BLLE Duplex was negative and low prob V/Q scan and (+) troponin. Currently feels well with mild dyspnea at rest, no chest pain - History Source History Provided By: Patient Limitations to Obtaining History: No Limitations - Alcohol/Substance Use Hx Alcohol Use: No - Smoking History Smoking history: Never smoked Home Medications - Allergies Allergies/Adverse Reactions: Allergies Allergy/AdvReac Type Severity Reaction Status Date / Time No Known Allergies Allergy Verified 08/13/17 10:31 - Home Medications Home Medications: Ambulatory Orders Acetaminophen [Tylenol Arthritis] 650 mg PO Q6H PRN 08/13/17 Allopurinol 300 mg PO DAILY 08/13/17 Amlodipine Besylate 5 mg PO DAILY 08/13/17 Aspirin [ASA -] 81 mg PO DAILY 08/13/17 Lisinopril 10 mg PO DAILY 08/13/17 Sodium Polystyrene Sulfonate [Kayexalate] 15 gm PO WEEKLY 08/13/17 Physical Exam Vital Signs: Vital Signs Temperature 98.9 F 08/14/17 09:02 Pulse Rate 106 H 08/14/17 09:02 Respiratory Rate 20 08/14/17 09:02 Blood Pressure 120/64 08/14/17 09:02 O2 Sat by Pulse Oximetry (%) 98 08/14/17 08:55 Constitutional: Yes: No Distress, Calm Eyes: Yes: Conjunctiva Clear HENT: Yes: WNL Neck: Yes: WNL Cardiovascular: Yes: WNL, Regular Rate and Rhythm Respiratory: Yes: WNL Gastrointestinal: Yes: Normal Bowel Sounds Extremities: Yes: WNL Edema: No Labs: CBC, BMP 08/14/17 05:05 08/14/17 05:05 Imaging - Results X-ray: Report Reviewed (No active disease) EKG: Image Reviewed (08/13/2017 23:23 NSR at 93/min without ischemic changes. 12:07 ST at 120 with S1Q3T3) Assessment/Plan 86 yo male CKD and gout Presents with dyspnea, edema left foot pain and elevated BNP 1) Dyspnea -No signs of CHF on exam -Does have a mild (+) troponin that is now down trending, no chest pain and ECG without any acute changes, but with low prob for PE concerns now for possible ACS as etiology. -Would continue with IV UFH (Goal PTT 60-80sec) -Continue asa and statin -May Need to consider whether proceeding with diagnostic cath vs pharma stress for further risk stratification. Will discuss with Dr. Medina -Would get formal with echo for LV function and WMA -Would given lasix 40mg IV now. 2) CKD -Stable -Continue to follow
--- NOTE | 2017-08-14 11:41 | CONS ---
ADDENDUM DATE OF CONSULTATION: IMPRESSION: History of gouty arthritis. RECOMMENDATIONS: 1. Pulmonary evaluation. 2. Pulmonary aerosol therapy. 3. Continue Lasix. 4. Daily weight. 5. If sinus tachycardia persists, consider adding calcium channel [place], example Cardizem, instead of Protamine provided his LV function is normal on echocardiogram. 6. Echocardiogram. 7. Consider reducing the dose of allopurinol in the presence of renal insufficiency. PROGNOSIS: Guarded. Time spent 2 hours 10 minutes. Thank you for your referral. ANDRES GARG M.D. [id number]
--- NOTE | 2017-08-14 12:37 | PN ---
Progress Note (short form) - Note Progress Note: states dyspnea has improved. no longer feeling palpitations. denies CP, cough, N /V/C/D, melena, BRBPR or hematuria Current Medications Generic Name Dose Route Start Last Admin Trade Name Freq PRN Reason Stop Dose Admin Acetaminophen 650 mg 08/13/17 16:06 08/14/17 06:10 Tylenol - PO 650 mg Q6H PRN Administration PAIN Amlodipine Besylate 5 mg 08/14/17 10:00 08/14/17 10:10 Norvasc - PO 5 mg DAILY JEISON Administration Aspirin 81 mg 08/14/17 10:00 08/14/17 10:10 Asa - PO 81 mg DAILY JEISON Administration Heparin Sodium (Porcine) 5,000 unit 08/13/17 22:00 08/14/17 06:06 Heparin - SQ 5,000 unit TID JEISON Administration Lisinopril 10 mg 08/14/17 10:00 08/14/17 10:10 Prinivil PO 10 mg DAILY JEISON Administration Sodium Polystyrene Sulfonate 15 gm 08/19/17 10:00 Kayexalate - PO Th@1000 JEISON Last Vital Signs Temp Pulse Resp BP Pulse Ox 98.9 F 106 H 20 120/64 98 08/14/17 09:02 08/14/17 09:02 08/14/17 09:02 08/14/17 09:02 08/14/17 08:55 Intake & Output 08/11/17 08/12/17 08/13/17 08/14/17 23:59 23:59 23:59 23:59 Intake Total 240 Output Total 200 Balance 240 -200 Weight 162 lb 159 lb 3.2 oz General NAD CV S1 S2 tacycardic no murmur Lungs crackles at the bases R>L no wheezing Abdomen soft NT/ND Extremities no pitting edema, tophi to 1st metacarpal B/L L buggy ladle tender CBCD WBC 10.1 K/mm3 (4.0-10.0) H 08/14/17 05:05 RBC 2.87 M/mm3 (4.00-5.60) L D 08/14/17 05:05 Hgb 8.8 GM/dL (11.7-16.9) L D 08/14/17 05:05 Hct 27.3 % (35.4-49) L D 08/14/17 05:05 MCV 95.0 fl (80-96) 08/14/17 05:05 MCHC 32.4 g/dl (32.0-35.9) 08/14/17 05:05 RDW 15.4 % (11.9-15.9) 08/14/17 05:05 Plt Count 371 K/MM3 (134-434) 08/14/17 05:05 MPV 8.3 fl (7.5-11.1) 08/14/17 05:05 CMP Sodium 141 mmol/L (136-145) 08/14/17 05:05 Potassium 5.0 mmol/L (3.5-5.1) 08/14/17 05:05 Chloride 111 mmol/L (98-107) H 08/14/17 05:05 Carbon Dioxide 20 mmol/L (21-32) L 08/14/17 05:05 Anion Gap 10 (8-16) 08/14/17 05:05 BUN 23 mg/dL (7-18) H 08/14/17 05:05 Creatinine 1.6 mg/dL (0.7-1.3) H 08/14/17 05:05 Creat Clearance w eGFR 41.09 (>60) 08/14/17 05:05 Random Glucose 90 mg/dL (74-106) 08/14/17 05:05 Calcium 8.4 mg/dL (8.5-10.1) L 08/14/17 05:05 Total Bilirubin 0.4 mg/dL (0.2-1.0) 08/14/17 05:05 AST 14 U/L (15-37) L D 08/14/17 05:05 ALT 16 U/L (12-78) 08/14/17 05:05 Alkaline Phosphatase 47 U/L (45-117) 08/14/17 05:05 Total Protein 5.9 g/dl (6.4-8.2) L 08/14/17 05:05 Albumin 2.7 g/dl (3.4-5.0) L 08/14/17 05:05 CARDIAC ENZYMES Creatine Kinase 65 IU/L (39-308) 08/13/17 12:00 Troponin I 0.89 ng/ml (0.00-0.05) H* D 08/14/17 03:00 ASSESSMENT AND PLAN: 86yo M with PMH CKD stage III, HTN, and gout presented to the ER with worsening pedal edema and dyspnea on exertion x1 week 1. SOB- likely acute CHF exacerbation. VQ negative for PE. will start lasix 40mg IVP daily. echo pending. cardio and pulmonary on board. 2. Elevated troponin- likely demand ischemia in setting of tachycardia. pt denies any CP, diphoresis. echo pending. may require stress test. cardio on board 3. Normocytic anemia- acute drop in Hgb. no signs of bleeding. will repeat to ensure if lab error. pt reports baseline Hgb 10 4. Gout- painful 1st digit L foot. was recently on steroids. dose adjust allopurinol based on CrCl 33. will re-start allopurinol. Uric acid 5.5 5. NAG acidosis- resolved. lactic acid normal. 6. HTN- controlled. start lisinopril and norvasc 7. CKD stage III- at baseline. 8. DVT ppx- hep sq Visit type - Emergency Visit Emergency Visit: Yes ED Registration Date: 08/13/17 Care time: The patient presented to the Emergency Department on the above date and was hospitalized for further evaluation of their emergent condition. - New Patient This patient is new to me today: No - Critical Care Critical Care patient: No - Discharge Referral Referred to [facility] Med P.C.: No
[2017-08-14 13:44] LABS: HEMATOCRIT 27.3 % (35.4-49); HEMOGLOBIN 8.8 GM/dL (11.7-16.9); MCH 30.5 pg (25.7-33.7); MCHC 32.1 g/dl (32.0-35.9); MEAN PLT VOLUME 8.2 fl (7.5-11.1); PLATELET COUNT 383 K/MM3 (134-434); RBC 2.88 M/mm3 (4.00-5.60); RDW 15.7 % (11.9-15.9); WHITE BLOOD COUNT 10.6 K/mm3 (4.0-10.0)
[2017-08-14] MEDS: FUROSEMIDE 40 MG/4 ML INJECTABLE VIAL IVPUSH SCH (14:01)
--- NOTE | 2017-08-14 14:47 | CON.PULM ---
Consult Consult Specialty:: PULMONARY Referred by:: RONALDO Reason for Consultation:: SOB - History of Present Illness Chief Complaint: SOB/GOUTY EXACERBATION History of Present Illness: "The patient is an 86-year-old male, with a significant HTN, gout, and renal insufficiency, who presents to the ED with one week of bilateral lower extremity (worse on the left-side) swelling and shortness of breath on exertion. Pts pain a 4/10 in severity and is worsened when he applies weight to his L foot. Pt experienced similar symptoms in the past and attributed it to gout. He states that the swelling resolved after he took a course of prednisone. He denies any travel or recent injuries. He denies having a history of blood clots or heart failure. .He denies any chest pain or palpitations. He denies any fever, chills, nausea, vomiting, diarrhea, or abdominal pain. 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 No: AFIB Pulmonary: No: COPD Gastrointestinal: No: Ascites Hepatobiliary: No: Cirrhosis Renal/: Yes: Renal Inusuff Heme/Onc: No: Anemia Infectious Disease: No: AIDS Psych: No: Addictions Rheumatology: Yes: Gout - Alcohol/Substance Use Hx Alcohol Use: No - Smoking History Smoking history: Never smoked Home Medications - Allergies Allergies/Adverse Reactions: Allergies Allergy/AdvReac Type Severity Reaction Status Date / Time No Known Allergies Allergy Verified 08/13/17 10:31 - Home Medications Home Medications: Ambulatory Orders Acetaminophen [Tylenol Arthritis] 650 mg PO Q6H PRN 08/13/17 Allopurinol 300 mg PO DAILY 08/13/17 Amlodipine Besylate 5 mg PO DAILY 08/13/17 Aspirin [ASA -] 81 mg PO DAILY 08/13/17 Lisinopril 10 mg PO DAILY 08/13/17 Sodium Polystyrene Sulfonate [Kayexalate] 15 gm PO WEEKLY 08/13/17 Family Disease History - Family Disease History Family History: Unremarkable Review of Systems - Review of Systems Cardiovascular: reports: Shortness of Breath. denies: Chest Pain Respiratory: reports: SOB on Exertion Musculoskeletal: reports: Joint Pain, Joint Swelling Physical Exam Vital Sings: Vital Signs Temperature 98 F 08/14/17 14:00 Pulse Rate 105 H 08/14/17 14:00 Respiratory Rate 20 08/14/17 14:00 Blood Pressure 152/78 08/14/17 14:00 O2 Sat by Pulse Oximetry (%) 98 08/14/17 08:55 Constitutional: Yes: No Distress Eyes: Yes: Conjunctiva Clear HENT: Yes: Atraumatic Neck: Yes: Supple Cardiovascular: Yes: Regular Rate and Rhythm Respiratory: Yes: Rales (BIBASILAR) Gastrointestinal: Yes: Normal Bowel Sounds Extremities: Yes: Erythema Edema: LLE: 1+, RLE: 1+ Neurological: Yes: Alert Labs: CBC, BMP 08/14/17 13:20 08/14/17 05:05 ABG Results ABG pH 7.40 (7.35-7.45) 08/13/17 16:50 ABG pCO2 at Pt Temp 30.7 mmHg (35-45) L 08/13/17 16:50 ABG pO2 at Pt Temp 86.5 mmHg (68-100) 08/13/17 16:50 ABG HCO3 18.8 meq/L (22-26) L 08/13/17 16:50 ABG O2 Sat (Measured) 96.9 % (90-98.9) 08/13/17 16:50 ABG O2 Content 12.9 % vol (15-22) L 08/13/17 16:50 ABG Base Excess -4.7 meq/l (-2-2) L 08/13/17 16:50 REST REVIEWED Imaging - Results Chest X-ray: Report Reviewed, Image Reviewed Other: Report Reviewed Problem List - Problems (1) Shortness of breath Code(s): R06.02 - SHORTNESS OF BREATH (2) CHF (congestive heart failure) Code(s): I50.9 - HEART FAILURE, UNSPECIFIED (3) Gout Code(s): M10.9 - GOUT, UNSPECIFIED (4) Renal insufficiency Code(s): N28.9 - DISORDER OF KIDNEY AND URETER, UNSPECIFIED Assessment/Plan SOB LIKELY DUE TO LVD NEVER SMOKER GOUT ATTACK ELEVATED TROPONINS AGREE WITH O2/JUAN/DIURETIC/ASA CARDIO TO F/U ECHO TREAT GOUTY SYMPTOMS Sarah Beth CUELLO MD
--- NOTE | 2017-08-14 20:48 | HOSP ---
Physical Examination Vital Signs: Vital Signs Temperature 98.6 F 08/14/17 18:00 Pulse Rate 112 H 08/14/17 18:00 Respiratory Rate 20 08/14/17 18:00 Blood Pressure 148/93 08/14/17 18:00 O2 Sat by Pulse Oximetry (%) 98 08/14/17 08:55 Labs: CBC, BMP 08/14/17 13:20 08/14/17 05:05 Hospitalist Encounter Assessment: 86yo M with PMH of CKD, htn, gout, admitted with worsening pedal edema and MANCILLA. Resident paged because pt has new onset fever of 100.9. Tylenol 650mg last given at 7pm. Leukocytosis trending up and slight tachycardia noted. blood cultures urine culture CXR ice packs Day Team to f/u. Visit type - Emergency Visit Emergency Visit: Yes ED Registration Date: 08/13/17 Care time: The patient presented to the Emergency Department on the above date and was hospitalized for further evaluation of their emergent condition. - New Patient This patient is new to me today: Yes Date on this admission: 08/14/17 - Critical Care Critical Care patient: No
[2017-08-15 00:56] LABS: URINE APPEARANCE CLEAR; URINE BILIRUBIN NEGATIVE (NEGATIVE); URINE BLOOD NEGATIVE (NEGATIVE); URINE COLOR STRAW; URINE GLUCOSE (UA) NEGATIVE (NEGATIVE); URINE KETONE NEGATIVE (NEGATIVE); URINE LEUK ESTERASE NEGATIVE (NEGATIVE); URINE NITRITE NEGATIVE (NEGATIVE); URINE PROTEIN NEGATIVE (NEGATIVE); URINE UROBILINOGEN NEGATIVE mg/dL (0.2-1.0)
[2017-08-15] MEDS: HEPARIN NA (PORCINE) 5,000 UNITS/ML 1ML VIAL SQ SCH ×3 (06:13→21:44)
[2017-08-15 09:22] LABS: ANION GAP 9 (8-16); BLOOD UREA NITROGEN 33 mg/dL (7-18); CALCIUM 8.5 mg/dL (8.5-10.1); CHLORIDE 110 mmol/L (98-107); CO2 22 mmol/L (21-32); CREATININE 2.1 mg/dL (0.7-1.3); GLUCOSE,RANDOM 99 mg/dL (74-106); MAGNESIUM 1.8 mg/dL (1.8-2.4); PHOSPHOROUS 4.3 mg/dL (2.5-4.9); POTASSIUM 4.6 mmol/L (3.5-5.1); SODIUM 141 mmol/L (136-145)
--- NOTE | 2017-08-15 09:25 | PN ---
Progress Note, Physician History of Present Illness: No events overnight Tele: ST with PVCs/couplets Severe left foot pain with weight bearing No chest pain or dsyspnea Will get dyspneic if ambulates or exerts himself - Current Medication List Current Medications: Active Medications Acetaminophen (Tylenol -) 650 mg PO Q6H PRN PRN Reason: PAIN Last Admin: 08/14/17 19:07 Dose: 650 mg Amlodipine Besylate (Norvasc -) 5 mg PO DAILY [facility] Last Admin: 08/14/17 10:10 Dose: 5 mg Aspirin (Asa -) 81 mg PO DAILY [facility] Last Admin: 08/14/17 10:10 Dose: 81 mg Furosemide (Lasix Injection -) 40 mg IVPUSH DAILY [facility] Last Admin: 08/14/17 14:01 Dose: 40 mg Heparin Sodium (Porcine) (Heparin -) 5,000 unit SQ TID [facility] Last Admin: 08/15/17 06:13 Dose: 5,000 unit Lisinopril (Prinivil) 10 mg PO DAILY [facility] Last Admin: 08/14/17 10:10 Dose: 10 mg Sodium Polystyrene Sulfonate (Kayexalate -) 15 gm PO Th@1000 [facility] - Objective Vital Signs: Vital Signs Temperature 101.0 F H 08/15/17 05:54 Pulse Rate 105 H 08/15/17 05:54 Respiratory Rate 20 08/15/17 05:54 Blood Pressure 135/68 08/15/17 05:54 O2 Sat by Pulse Oximetry (%) 98 08/14/17 21:00 Constitutional: Yes: No Distress, Calm Eyes: Yes: WNL HENT: Yes: WNL Neck: Yes: WNL, Trachea Midline Cardiovascular: Yes: Regular Rate and Rhythm Respiratory: Yes: WNL, Rales Gastrointestinal: Yes: Normal Bowel Sounds Musculoskeletal: Yes: Other (Left foot pain) Extremities: Yes: WNL Edema: LLE: Trace, RLE: Trace Labs: INR, PTT INR 1.12 (0.82-1.09) 08/13/17 11:00 Assessment/Plan 86 yo male CKD and gout Presents with dyspnea, edema left foot pain and elevated BNP 1) Dyspnea -No signs of CHF on exam -Does have a mild (+) troponin that is now down trending, no chest pain and ECG without any acute changes, but with low prob for PE, troponin likely related to demand state with tachycardia. Treated with IV UFH. -Continue asa and statin -May Need to consider whether proceeding with diagnostic cath vs pharma stress for further risk stratification. Will discuss with Dr. Medina -Would get formal with echo for LV function and WMA -Would given lasix 40mg IV now. 2) CKD -Stable -Continue to follow
[2017-08-15 09:34] LABS: HEMATOCRIT 28.4 % (35.4-49); MCH 30.1 pg (25.7-33.7); MCHC 31.8 g/dl (32.0-35.9); MEAN CELL VOLUME 94.6 fl (80-96); MEAN PLT VOLUME 8.3 fl (7.5-11.1); PLATELET COUNT 364 K/MM3 (134-434); RDW 15.7 % (11.9-15.9); WHITE BLOOD COUNT 11.2 K/mm3 (4.0-10.0)
[2017-08-15] MEDS: amLODIPine BESYLATE 5 MG TABLET (FP) PO SCH (10:07)
[2017-08-15] MEDS: LISINOPRIL 10 MG TABLET (FP) PO SCH (10:07)
[2017-08-15] MEDS: ASPIRIN 81 MG CHEWABLE TABLETS PO SCH (10:07)
[2017-08-15] MEDS: FUROSEMIDE 40 MG/4 ML INJECTABLE VIAL IVPUSH SCH (10:07)
--- NOTE | 2017-08-15 10:50 | CONSULT ---
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 HPI> The patient has history of gouty arthritis since 2008. At that time the creatinine was 1.2 and uric acid 8.3. Last year he had 3 or 4 episodes of gout per year Allopurinol was increased from 100 mg/d to 300 mg/d and the patient has been stable. Uric acid levels from 07/20/17: 7.1, 06/29/17: 4.2, 08/13/17: 3.9. Creatinine on 08/14/17: 1.6, and on 08/15/17: 2.1. The patient is not compliant with low purine diet. The last episode of acute arthritis was on 06/15. At the present time the patient reports a 1 week history of progressive pain in the left ankle and left foot and progressive shortness of breath. On admission Duplex US of the left leg was negative for DVT, VQ scan had low probability for PE and Troponin I was 0.61. 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 No: AFIB Pulmonary: No: COPD Gastrointestinal: No: Ascites Hepatobiliary: No: Cirrhosis Renal/: Yes: Renal Inusuff Infectious Disease: No: AIDS Psych: No: Addictions Rheumatology: Yes: Gout - Alcohol/Substance Use Hx Alcohol Use: No - Smoking History Smoking history: Never smoked Home Medications - Allergies Allergies/Adverse Reactions: Allergies Allergy/AdvReac Type Severity Reaction Status Date / Time No Known Allergies Allergy Verified 08/13/17 10:31 - Home Medications Home Medications: Ambulatory Orders Acetaminophen [Tylenol Arthritis] 650 mg PO Q6H PRN 08/13/17 Allopurinol 300 mg PO DAILY 08/13/17 Amlodipine Besylate 5 mg PO DAILY 08/13/17 Aspirin [ASA -] 81 mg PO DAILY 08/13/17 Lisinopril 10 mg PO DAILY 08/13/17 Sodium Polystyrene Sulfonate [Kayexalate] 15 gm PO WEEKLY 08/13/17 Review of Systems - Review of Systems Constitutional: reports: Malaise Eyes: reports: No Symptoms HENT: reports: No Symptoms Neck: reports: No Symptoms Cardiovascular: reports: Shortness of Breath Respiratory: reports: SOB Gastrointestinal: reports: No Symptoms Genitourinary: reports: No Symptoms Musculoskeletal: reports: Other (See HPI) Neurological: reports: No Symptoms Physical Exam Vital Signs: Vital Signs Temperature 101.0 F H 08/15/17 05:54 Pulse Rate 105 H 08/15/17 05:54 Respiratory Rate 20 08/15/17 05:54 Blood Pressure 135/68 08/15/17 05:54 O2 Sat by Pulse Oximetry (%) 98 08/14/17 21:00 Constitutional: Yes: Mild Distress Eyes: Yes: WNL HENT: Yes: WNL Neck: Yes: WNL Cardiovascular: Yes: WNL Respiratory: Yes: WNL Gastrointestinal: Yes: WNL Musculoskeletal: Yes: Other (Tenderness and swelling of the left ankle and left 1st MTP.) Labs: CBC, BMP 08/15/17 07:00 08/15/17 07:00 Laboratory Tests 08/13/17 08/13/17 08/14/17 11:00 18:30 05:05 Creatinine 1.6 H Uric Acid 3.9 Total Bilirubin 0.4 AST 14 L D ALT 16 Alkaline Phosphatase 47 Creatine Kinase Troponin I TSH 0.88 D Urine Color Ltyellow Urine Appearance Clear Urine pH 5.0 Urine Protein 1+ H Urine Glucose (UA) Negative Urine Ketones Negative Urine Blood 1+ H Urine Nitrite Negative Urine Bilirubin Negative Urine Urobilinogen Negative Ur Leukocyte Esterase Negative Urine WBC (Auto) <1 Urine RBC (Auto) <1 08/14/17 13:20 Creatinine Uric Acid Total Bilirubin AST ALT Alkaline Phosphatase Creatine Kinase 115 Troponin I 0.61 H* D TSH Urine Color Urine Appearance Urine pH Urine Protein Urine Glucose (UA) Urine Ketones Urine Blood Urine Nitrite Urine Bilirubin Urine Urobilinogen Ur Leukocyte Esterase Urine WBC (Auto) Urine RBC (Auto) Problem List - Problems (1) Gout Assessment/Plan: Acute gouty arthritis involving the left ankle and left 1st MTP. The patient has chronic kidney disease, however based on the eGFR he can continue with Allopurinol. As the last uric acid was 3.9, I will decreased Allopurinol to 200 mg/d (Allopurinol should not be discontinued during the acute gouty arthritis episode). Even though the Uric acid level is the target level (<6) he continues having frequent episodes of gout. He is not candidate for prophylactic doses of Colchicine due to kidney disease. I suggested to follow- up low purine diet. For the present acute episode of arthritis I will start Prednisone 40 mg /d with a tapering schedule. Code(s): M10.9 - GOUT, UNSPECIFIED
[2017-08-15] MEDS: predniSONE 20 MG TABLET (UD) PO SCH (11:49)
[2017-08-15] MEDS: ALLOPURINOL 100 MG TABLET (FP) PO SCH ×2 (11:49→21:44)
--- NOTE | 2017-08-15 12:51 | PN ---
Physical Exam: SUBJECTIVE: Patient seen and examined. Doing well, was on phone with friends. States he doesn't feel febrile or chills, but has been told he is spiking temps. Per Tele, HR rises with fever. Still complains of L foot pain but denies CP, SOB, headaches, abd pain, dysuria, etc. 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 NEURO: CN 2-12 intact, no sensation or MSK deficits Active Medications Generic Name Dose Route Start Last Admin Trade Name Zackq PRN Reason Stop Dose Admin Acetaminophen 650 mg 08/13/17 16:06 08/14/17 19:07 Tylenol - PO 650 mg Q6H PRN Administration PAIN Allopurinol 100 mg 08/15/17 11:15 08/15/17 11:49 Zyloprim - PO 100 mg BID JEISON Administration Amlodipine Besylate 5 mg 08/14/17 10:00 08/15/17 10:07 Norvasc - PO 5 mg DAILY JEISON Administration Aspirin 81 mg 08/14/17 10:00 08/15/17 10:07 Asa - PO 81 mg DAILY JEISON Administration Furosemide 40 mg 08/14/17 13:00 08/15/17 10:07 Lasix Injection - IVPUSH 40 mg DAILY JEISON Administration Heparin Sodium (Porcine) 5,000 unit 08/13/17 22:00 08/15/17 06:13 Heparin - SQ 5,000 unit TID JEISON Administration Lisinopril 10 mg 08/14/17 10:00 08/15/17 10:07 Prinivil PO 10 mg DAILY JEISON Administration Prednisone 40 mg 08/15/17 11:15 08/15/17 11:49 Deltasone - PO 08/17/17 10:01 40 mg DAILY JEISON Administration Prednisone 20 mg 08/18/17 10:00 Deltasone - PO 08/20/17 10:01 DAILY [facility] Prednisone 10 mg 08/21/17 10:00 Deltasone - PO 08/23/17 10:01 DAILY [facility] Prednisone 5 mg 08/24/17 10:00 Deltasone - PO 08/26/17 10:01 DAILY [facility] Sodium Polystyrene Sulfonate 15 gm 08/19/17 10:00 Kayexalate - PO Th@1000 [facility] ASSESSMENT/PLAN: 86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 # L Foot Pain - Consistent with prior gouty flairs. L Foot/ankle XR negative for fracture. Dr. Pereyra from Rheumatology recommends decreased dose of Allopurinol to 100mg BID in acute exac. Also recommends Prednisone 40/daily with tapering schedule. Tylenol PRN for pain # SOB likely 2/2 CHF Exac - Patient presented w/ SOB on exertion. EKG S1Q3T3 pattern indicates possible R heart strain. This is unlikely from PE (low risk, low prob V/Q). Could be 2/2 ACS leading to L Ventricular dysfunction and subsequent new onset CHF. Responded well to Lasix trial. Currently on Lasix 40 daily with improvement in BLLE edema and JVD. Still has crackles. F/u echo read on Wednesday # +SIRS - Unclear etiology. Though patient doesn't appear septic, but is tachy, WBC is trending up and now spiking low grade temps. F/u Bcx. Hold antibiotics for now as no sources has been identified # Troponinemia - Likely demand ischemia from tachycardia, and less likely ACS. No EKG changes. # Acute Normocytic Anemia - Hgb normally in 10s. Stable currently Iron studies pending. # CKD Stage 3 - Around baseline of 1.8-2.1. Continue to monitor Cr while on Lasix. Takes Kayexalate weekly # Hx of HTN - Well controlled on Lisinopril 10 and Norvasc 5 # FEN - No IVF, elec wnl, sodium controlled diet # PPx - HSQ TID, no GI prophylaxis, PT ordered # Dispo - Continue Tele since patient still tachy w/ PVCs. Echo report available Wednesday. Continue diuresis. Needs outpatient cardiac eval d/w Dr Mejia Negron MD - PGY1 Internal Medicine Resident Visit type - Emergency Visit Emergency Visit: No - New Patient This patient is new to me today: No - Critical Care Critical Care patient: No - Discharge Referral Referred to [facility] Med P.C.: No
--- NOTE | 2017-08-15 15:17 | PN ---
Teaching Attending Note Name of Resident: Kristi Negron ATTENDING PHYSICIAN STATEMENT I saw and evaluated the patient. I reviewed the resident's note and discussed the case with the resident. I agree with the resident's findings and plan as documented. SUBJECTIVE:continues to have foot pain. breathing is better. denies Cp, fever, chills, cough, N/V/C/D OBJECTIVE: Last Vital Signs Temp Pulse Resp BP Pulse Ox 98.8 F 103 H 22 129/67 98 08/15/17 13:00 08/15/17 13:00 08/15/17 13:00 08/15/17 13:00 08/15/17 09:00 Intake & Output 08/12/17 08/13/17 08/14/17 08/15/17 23:59 23:59 23:59 23:59 Intake Total 240 500 40 Output Total 550 1050 Balance Weight 162 lb 159 lb 3.2 oz 156 lb 6.4 oz General NAD CV S1 S2 RRR no murmur Lungs crackles B/L bases Extremities L foot tenderness no edema, tophi to 1st metacarpal B/L ASSESSMENT AND PLAN: 86yo M with PMH CKD stage III, HTN, and gout presented to the ER with worsening pedal edema and dyspnea on exertion x1 week 1. Acute diastolic CHF- clinically improved. decrease in 3 lbs. cont lasix 40mg IVP daily. daily weights, strict I&O. cardio and pulmonary on board. 2. Elevated troponin- likely demand ischemia in setting of tachycardia. will need ischemia eval inpatient vs outpatient per cardio 3. Normocytic anemia-Hgb stable. possible Hgb on admission wrong lab. iron studies pending. 4. Fever- T101. sepsis workup. echo negative for vegetation. f/u Cx. will hold abx at this time. no luekocytosis 5. Acute Gout- evaluted by rhuem. started on prednisone taper as not improving. allopurinol reduced. 6. NAG acidosis- resolved. lactic acid normal. 7. HTN- controlled. but will hold ACEI due to worsening OCTAVIO. monitor as off. on norvasc 8. ACute on CKD stage III- slight uptrend from baseline. will hold ACEI to give more room for diuresis. 9. DVT ppx- hep sq
[2017-08-15] MEDS: ACETAMINOPHEN 325 MG TABLET (FP) PO PRN (21:45)
[2017-08-16 06:06] LABS: SERUM IRON SATURATION 8 % (15-55); TOTAL IRON BINDING CAPACITY 206 ug/dL (250-450); UIBC 190 ug/dL (111-343)
[2017-08-16] MEDS: HEPARIN NA (PORCINE) 5,000 UNITS/ML 1ML VIAL SQ SCH (06:52)
--- NOTE | 2017-08-16 07:15 | MSN ---
Progress Note (short form) - Note Progress Note: SUBJECTIVE CC: L foot pain and B/L LE swelling HPI: 86 y/o M with PMHx HTN, gout, CKD stage III, who presented to ED with c/o of L foot pain, B/L leg swelling, and dyspnea on exertion. Pt seen and examined today. Pt reports L foot pain is much improved, can now put pressure on foot w/o pain and ambulate to restroom. Pt reports edema in b/l LE has resolved. Pt denies palpitations, chest pain, swelling in B/L LE, SOB, feeling febrile. OBJECTIVE Last Vital Signs Temp Pulse Resp BP Pulse Ox 97.4 F L 80 20 115/55 99 08/16/17 06:00 08/16/17 06:00 08/16/17 06:00 08/16/17 06:00 08/15/17 21:00 General: Pt appeared comfortable, breathing without use of accessory muscles. Eyes: EOMI. PERRLA. Anicteric. Neck: No B/L JVD. resolved. Heart: Tachycardic rate; regular rhythm. S1, S2. No murmurs appreciated. Lungs: CTA B/L. No rhonchi, rales or wheezing. Abdomen: Nondistended, nontender to palpation. Extremities: No edema in B/L LE. Resolved. DP pulse 2+ b/l. No cyanosis or clubbing noted. No edema noted on b/l UE. No erythema. 5/5 muscle strength throughout UE and LE. 5/5 tank tender strength. Tophi noted on R and L hallux. Tophi on fingers. CBC, BMP 08/15/17 07:00 08/15/17 07:00 08/16/17 06:58 08/16/17 06:58 Abnormal Lab Results 08/15/17 08/15/17 08/15/17 07:00 07:00 07:00 WBC 11.2 H RBC 3.00 L Hgb 9.0 L Hct 28.4 L MCHC 31.8 L RDW Chloride 110 H BUN 33 H D Creatinine 2.1 H D Random Glucose Iron 16 L TIBC 206 L Iron Saturation 8 L 08/16/17 08/16/17 06:58 06:58 WBC 13.6 H RBC 3.23 L Hgb 9.8 L Hct 31.0 L MCHC 31.7 L RDW 16.2 H Chloride BUN 52 H D Creatinine 2.9 H D Random Glucose 110 H Iron TIBC Iron Saturation Intake & Output 08/13/17 08/14/17 08/15/17 08/16/17 23:59 23:59 23:59 23:59 Intake Total 240 500 520 Output Total 550 1250 Balance 240 -50 -730 Weight 162 lb 159 lb 3.2 oz 156 lb 6.4 oz Echocardiogram: Evidence of likely diastolic CHF w/ elevated RVSP. Iron studies: iron 16; TIBC 206 decreased; iron sat 8 decreased; ferritin 119 Microbiology 08/14/17 21:30 Blood - Peripheral Venous Blood Culture - Preliminary NO GROWTH OBTAINED AFTER 24 HOURS, INCUBATION TO CONTINUE FOR 4 DAYS. 08/14/17 21:30 Blood - Peripheral Venous Blood Culture - Preliminary NO GROWTH OBTAINED AFTER 24 HOURS, INCUBATION TO CONTINUE FOR 4 DAYS. 08/13/17 22:15 Nasopharyngeal Swab Influenza Types A,B Antigen (MOHSEN) - Final 08/13/17 22:15 Nasopharyngeal Swab - Final Active Medications Generic Name Dose Route Start Last Admin Trade Name Freq PRN Reason Stop Dose Admin Acetaminophen 650 mg 08/13/17 16:06 08/15/17 21:45 Tylenol - PO 650 mg Q6H PRN Administration PAIN Allopurinol 100 mg 08/15/17 11:15 08/15/17 21:44 Zyloprim - PO 100 mg BID JEISON Administration Amlodipine Besylate 5 mg 08/14/17 10:00 08/15/17 10:07 Norvasc - PO 5 mg DAILY JEISON Administration Aspirin 81 mg 08/14/17 10:00 08/15/17 10:07 Asa - PO 81 mg DAILY JEISON Administration Furosemide 40 mg 08/14/17 13:00 08/15/17 10:07 Lasix Injection - IVPUSH 40 mg DAILY JEISON Administration Heparin Sodium (Porcine) 5,000 unit 08/13/17 22:00 08/16/17 06:52 Heparin - SQ 5,000 unit TID JEISON Administration Prednisone 40 mg 08/15/17 11:15 08/15/17 11:49 Deltasone - PO 08/17/17 10:01 40 mg DAILY JEISON Administration Prednisone 20 mg 08/18/17 10:00 Deltasone - PO 08/20/17 10:01 DAILY JE[facility] Prednisone 10 mg 08/21/17 10:00 Deltasone - PO 08/23/17 10:01 DAILY [facility] Prednisone 5 mg 08/24/17 10:00 Deltasone - PO 08/26/17 10:01 DAILY [facility] Sodium Polystyrene Sulfonate 15 gm 08/19/17 10:00 Kayexalate - PO Th@1000 [facility] ASSESSMENT 86 y/o M with PMHx HTN, gout, CKD stage III, who presented to ED with c/o of L foot pain, B/L leg swelling, and dyspnea on exertion with 1 week duration. EKG findings were concerning for R heart strain from possible PE leading to R heart failure and b/l LE edema, b/l JVD. PLAN 1. L Foot Pain likely 2/2 acute gout flair - Allopurinol was decreased to 100 m BID; gout is well controlled; continue dosage as per rheumatology Dr. Pereyra - Prednisone taper beginning at 40 mg was started 08/15 as per Rheumatology consult - Tylenol PRN pain - patient still requires additional pain control, continue PRN meds. 2. SOB likely 2/2 Diastolic CHF Exacerbation - Echocardiogram shows elevated RVSP; EKG S1Q3T3 pattern indicating R heart strain - SOB now resolved; patient is responding well to Lasix (lost 3 lb yesterday) with improvement in B/L LE edema and B/L JVD - hold Lasix 2/2 worsening kidney function; can start on spironolactone as outpt once kidney fxn improves. - as per Dr. Edward recommendations, decrease Lasix (will hold), order carotid US (due to coronary a. calcifications), will require nephro f/u as outpt 3. Leukocytosis - WBC count has increased from 9.7 on admission; WBC is trending upwards; now 13.6; tachycardic with PVCs. - blood culture negative; f/u urine culture to rule out source of infection. recent bronchitis suspected causing low grade fevers over the weekend. - if urine culture is negative, increase in WBC count is likely 2/2 steroid induced leukocytosis. 4. Elevated troponins likely 2/2 demand ischemia - troponins have normalized; no EKG changes. No need to monitor. 5. Acute normocytic normochromic anemia likely 2/2 iron deficiency anemia - iron wnl; TIBC decreased; iron saturation decreased; ferritin wnl - Hgb baseline 10; will start on daily Fe supplementation 6. acute on chronic kidney failure - likely 2/2 CKD stage 3 and renally cleared medications - Mg2+, BMP to evaluate kidney function; baseline 1.8-2.1; BUN/Cr trending upwards. - Pt is on Lasix and Allopurinol, renally cleared; will hold Lasix until kidney function normalizes. - Kayexalate 7. HTN - home Norvasc 5, Lisinopril 10 - JUAN inhibitor currently held 2/2 worsening OCTAVIO. Patient only controlled with Norvasc. BP today well controlled. 8. FEN - fluids: no fluids necessary - electrolytes: wnl, monitor - nutrition: purine controlled diet 9. PPX - Hep SQ 5000U TID Dispo: Tele - patient is tachycardic with PVCs. will require outpt cardiac f/u.
[2017-08-16 08:06] LABS: HEMOGLOBIN 9.8 GM/dL (11.7-16.9); MCH 30.4 pg (25.7-33.7); MCHC 31.7 g/dl (32.0-35.9); MEAN CELL VOLUME 95.9 fl (80-96); MEAN PLT VOLUME 8.8 fl (7.5-11.1); PLATELET COUNT 397 K/MM3 (134-434); RBC 3.23 M/mm3 (4.00-5.60); RDW 16.2 % (11.9-15.9); WHITE BLOOD COUNT 13.6 K/mm3 (4.0-10.0)
[2017-08-16 08:34] LABS: ANION GAP 10 (8-16); BLOOD UREA NITROGEN 52 mg/dL (7-18); CALCIUM 9.6 mg/dL (8.5-10.1); CHLORIDE 107 mmol/L (98-107); CO2 25 mmol/L (21-32); GLUCOSE,RANDOM 110 mg/dL (74-106); MAGNESIUM 2.2 mg/dL (1.8-2.4); POTASSIUM 4.7 mmol/L (3.5-5.1); SODIUM 142 mmol/L (136-145)
[2017-08-16 08:35] LABS: CREATININE 2.9 mg/dL (0.7-1.3)
[2017-08-16] MEDS: ALLOPURINOL 100 MG TABLET (FP) PO SCH (09:49)
[2017-08-16] MEDS: amLODIPine BESYLATE 5 MG TABLET (FP) PO SCH (09:49)
[2017-08-16] MEDS: predniSONE 20 MG TABLET (UD) PO SCH (09:49)
[2017-08-16] MEDS: FUROSEMIDE 40 MG/4 ML INJECTABLE VIAL IVPUSH SCH (09:49)
[2017-08-16] MEDS: ASPIRIN 81 MG CHEWABLE TABLETS PO SCH (09:49)
--- NOTE | 2017-08-16 10:10 | PN ---
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 Feels better, no chest pain or discomfort. Since on steroids right foot pain has subsided.Worsening renal function. Active Medications Generic Name Dose Route Start Last Admin Trade Name Freq PRN Reason Stop Dose Admin Acetaminophen 650 mg 08/13/17 16:06 08/15/17 21:45 Tylenol - PO 650 mg Q6H PRN Administration PAIN Allopurinol 100 mg 08/15/17 11:15 08/16/17 09:49 Zyloprim - PO 100 mg BID JEISON Administration Amlodipine Besylate 5 mg 08/14/17 10:00 08/16/17 09:49 Norvasc - PO 5 mg DAILY JEISON Administration Aspirin 81 mg 08/14/17 10:00 08/16/17 09:49 Asa - PO 81 mg DAILY JEISON Administration Furosemide 40 mg 08/14/17 13:00 08/16/17 09:49 Lasix Injection - IVPUSH 40 mg DAILY [facility] Administration Heparin Sodium (Porcine) 5,000 unit 08/13/17 22:00 08/16/17 06:52 Heparin - SQ 5,000 unit TID JEISON Administration Prednisone 40 mg 08/15/17 11:15 08/16/17 09:49 Deltasone - PO 08/17/17 10:01 40 mg DAILY [facility] Administration Prednisone 20 mg 08/18/17 10:00 Deltasone - PO 08/20/17 10:01 DAILY [facility] Prednisone 10 mg 08/21/17 10:00 Deltasone - PO 08/23/17 10:01 DAILY [facility] Prednisone 5 mg 08/24/17 10:00 Deltasone - PO 08/26/17 10:01 DAILY [facility] Sodium Polystyrene Sulfonate 15 gm 08/19/17 10:00 Kayexalate - PO Th@1000 [facility] 86 years male OOB , in no dirtress, no pallor, cyanosis, clubbing or jaundice. Last Vital Signs Temp Pulse Resp BP Pulse Ox 97.4 F L 80 20 115/55 99 08/16/17 06:00 08/16/17 06:00 08/16/17 06:00 08/16/17 06:00 08/15/17 21:00 NECK: Supple, no JVD, carotids 2+ right bruit, no thyromegaly. Heart: distant sounds, no murmur or gallops heard. LUNGS: Bilateral creps, right. more pronounced than left. ABDOMEN: Soft, nontender, no organomegaly or masses felt. EXTREMITIES: no edema or calf tenderness. CBC, BMP 08/16/17 06:58 08/16/17 06:58 CT CHEST: Bullous changes Right more than left. Conorary artery calcifications. A: 1. Suspect recent Bronchitis. 2. CHF, resolved 3. Acute on CKD partly related to diuretics. 4. Acute gouty arthritis. 5. Bullous pulmonary changes, suspect bronciectasis. RECOMMENDATIONS: 1. Decrease dose of lasix. 2. Carotid ultasound. 3. Nephrology followup.
--- NOTE | 2017-08-16 10:29 | CONS ---
DATE OF CONSULTATION: CARDIOLOGY CONSULTATION LOCATION: Emergency room REQUESTING PHYSICIAN: Dr. 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 He denies having paroxysmal or nocturnal dyspnea or orthopnea. There is history of pedal edema. History of gouty arthritis. The patient said he was placed on steroids by his metal stud framer for gouty arthritic pain involving the right foot, and he has been complaining of significant pain involving the plantar surface of the left foot. On admission, he was found to have persistent sinus tachycardia. He denies having chest pain or discomfort either at rest or with exertion. No history of palpitations, lightheadedness, dizziness, presyncope, or syncope reported. No history of diabetes mellitus. History of hypercholesterolemia but takes no medications. PAST MEDICAL HISTORY: As mentioned in the history of present illness. 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 Smoked from the age of [age]. Has a social drink. FAMILY HISTORY: Both parents in their 90s. A total of 7 siblings, 3 brothers and 4 sisters. One sister is . Brother in infancy in [place]. Another brother has lung cancer. MEDICATIONS: Prior to admission: 1. Allopurinol 300 mg p.o. daily. 2. Amlodipine 5 mg p.o. daily. 3. Aspirin 81 mg p.o. daily. 4. Lisinopril 10 mg p.o. daily. 5. Kayexalate 15 g p.o. once a week. 6. Tylenol 650 mg p.o. q.6 hours p.r.n. In hospital medications: 1. Lisinopril 10 mg p.o. daily. 2. Heparin as per protocol. 3. Allopurinol 300 mg p.o. daily. 4. Tylenol 650 mg q.6 hours p.r.n. 5. According to the nurse, he had received furosemide 40 mg IV. REVIEW OF SYSTEMS: Constitutional: No history of chills, fever, or night sweats reported. No history of unintentional weight loss. HEENT: No history of headaches, diplopia, blurred vision. No history of epistaxis or hoarseness. No history of tinnitus. Bilateral deafness requiring hearing aids. Cardiovascular: See history of present illness. Respiratory: No history of cough or expectoration. According to his family, he has had wheezing for the past few weeks. Gastrointestinal: No history of nausea, vomiting, melena, or hematemesis. No history of abdominal pain or discomfort. Neurologic: No history of seizures, syncope, or focal weakness. Musculoskeletal: See history of present illness. Endocrine: No history of polyuria or polydipsia. No history of intolerance to cold or warm weather. Hematologic: No history of bleeding, ecchymosis, or anemia. Genitourinary: History of nocturia. No history of hematuria. History of intermittent urgency. PHYSICAL EXAMINATION: General: An 86-year-old alert gentleman who is mildly dyspneic. There is no pallor, cyanosis, clubbing, or jaundice. Vital Signs: Blood pressure 160/76 mmHg, pulse 120 beats per minute and regular, respirations 22 beats per minute, oxygen saturation on room air 96%. Neck: Supple. There is jugular venous distention at 30 degrees with a positive hepatojugular reflux. Carotids are 2+. Upstrokes are normal. There is a right carotid bruits. There is no thyromegaly. Heart: PMI is in the 5th intercostal space. No heaves or thrills. A grade 1/6 decrescendo systolic murmur heard along the left sternal border. Unable to appreciate a diastolic murmur. S4 gallop at the apex. Lungs: Coarse bibasilar crepitations more pronounced on the left. Scattered expiratory wheezing. Chest: Normal AP diameter. Expansion grossly appears to be normal. Abdomen: Soft, obese, and nontender. Liver is 1 to 2 fingerbreadths below the right costal margin. No hepatosplenomegaly is appreciated. No palpable masses are felt. Bowel sounds are heard. No bruits are present. Extremities: No calf tenderness. There is 2+ left lower extremity edema. Left calf is warm. No tenderness is elicited. There is a trace right pretibial edema. There is tenderness involving the plantar surface under the right big toe on palpation. Femoral pulses are 2+. Dorsalis pedis pulses are 1 to 2+. Posterior tibial pulses are not palpable. LABORATORY DATA: ECG: Initial ECG reveals sinus tachycardia. There was S1Q3T pattern. Nonspecific ST changes. No previous ECG was available for comparison. CBC: WBC count 9700, hemoglobin 12.4 g, platelet count 357,000, neutrophils 75.1%, lymphocytes 12.6%, monocytes 11.1%, eosinophils 0.5%, basophils 0.7%. Arterial blood gases reveal pH 7.40, PCO2 37.1, PO2 86.5, bicarbonate 18.8. Negative base excess. Chemistry: Sodium 140, potassium 5.1, chloride 109, CO2 is 21 mmol/L, BUN 27, creatinine 1.7 mg/dL. BNP 1744.79. CK 65, troponin 0.04, total protein 7.1, albumin low at 3.2. Vascular study impression: No evidence of deep vein thrombosis. X-ray chest impression: No evidence of pneumonia, CHF, pleural effusion, or pneumothorax. X-ray of the left foot and ankle impression: No acute bony deformity seen. Intact distal tibia, fibula. Normal ankle joint. Hallux valgus deformity with induration of the medial soft tissue. IMPRESSION: 1. Clinical presentation compatible with congestive heart failure [place] Heart Classification 3. 2. Acute bronchitis/pneumonia needs to be excluded. 3. Hypertension, hypertensive cardiovascular disease. 4. History of gout. 5. Unilateral left lower extremity edema with increased warmth, etiology: A. Possibility of cellulitis related to gouty arthritis. DICTATION ENDS HERE Crys [id number]
[2017-08-16 10:52] VITALS: BP 124/44; PULSE 117; TEMP 98.1
--- NOTE | 2017-08-16 10:57 | PN ---
Progress Note, Physician History of Present Illness: PULMONARY ALERT,OOB-CHAIR,FEELING BETTER,-CP,-SOB - Current Medication List Current Medications: Active Medications Acetaminophen (Tylenol -) 650 mg PO Q6H PRN PRN Reason: PAIN Last Admin: 08/15/17 21:45 Dose: 650 mg Allopurinol (Zyloprim -) 100 mg PO BID [facility] Last Admin: 08/16/17 09:49 Dose: 100 mg Amlodipine Besylate (Norvasc -) 5 mg PO DAILY [facility] Last Admin: 08/16/17 09:49 Dose: 5 mg Aspirin (Asa -) 81 mg PO DAILY [facility] Last Admin: 08/16/17 09:49 Dose: 81 mg Furosemide (Lasix Injection -) 40 mg IVPUSH DAILY [facility] Last Admin: 08/16/17 09:49 Dose: 40 mg Heparin Sodium (Porcine) (Heparin -) 5,000 unit SQ TID [facility] Last Admin: 08/16/17 06:52 Dose: 5,000 unit Prednisone (Deltasone -) 40 mg PO DAILY [facility] Stop: 08/17/17 10:01 Last Admin: 08/16/17 09:49 Dose: 40 mg Prednisone (Deltasone -) 20 mg PO DAILY [facility] Stop: 08/20/17 10:01 Prednisone (Deltasone -) 10 mg PO DAILY [facility] Stop: 08/23/17 10:01 Prednisone (Deltasone -) 5 mg PO DAILY [facility] Stop: 08/26/17 10:01 Sodium Polystyrene Sulfonate (Kayexalate -) 15 gm PO Th@1000 [facility] - Objective Vital Signs: Vital Signs Temperature 97.4 F L 08/16/17 06:00 Pulse Rate 80 08/16/17 06:00 Respiratory Rate 20 08/16/17 06:00 Blood Pressure 115/55 08/16/17 06:00 O2 Sat by Pulse Oximetry (%) 99 08/15/17 21:00 Constitutional: Yes: Well Nourished, Calm Eyes: Yes: WNL HENT: Yes: WNL Neck: Yes: WNL Cardiovascular: Yes: Regular Rate and Rhythm, S1, S2 Respiratory: Yes: Rales (BILATERAL CRACKLES 1/2 UP) Gastrointestinal: Yes: Normal Bowel Sounds, Soft Extremities: Yes: WNL Edema: No Labs: CBC, BMP 08/16/17 06:58 08/16/17 06:58 INR, PTT INR 1.12 (0.82-1.09) 08/13/17 11:00 - ....Imaging Cat Scan: Report Reviewed, Image Reviewed (BULLA/BRONCHIECTASIS LLL,MINIMAL RLL) Problem List - Problems (1) 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 COPD H/O SMOKING 50YRS AGO GOUT ATTACK ELEVATED TROPONINS AGREE WITH O2 INHALED BRONCHODILATORS JUAN/DIURETIC PREDNISONE PFTS OUTPATIENT ASA DR ADAMS
[2017-08-16] MEDS ORDERED: FERROUS SO4 300 MG/5 ML ORAL SOLN UNIT DOSE CUPS PO SCH (11:45)
--- NOTE | 2017-08-16 13:53 | PN ---
Teaching Attending Note Name of Resident: Libia Patton ATTENDING PHYSICIAN STATEMENT I saw and evaluated the patient. I reviewed the resident's note and discussed the case with the resident. I agree with the resident's findings and plan as documented. SUBJECTIVE:asymptomatic. denies CP, SOB< fever, chills, N/V/C/D, cough OBJECTIVE: Last Vital Signs Temp Pulse Resp BP Pulse Ox 98.1 F 117 H 22 124/44 98 08/16/17 10:00 08/16/17 10:00 08/16/17 10:00 08/16/17 10:00 08/16/17 10:00 Intake & Output 08/13/17 08/14/17 08/15/17 08/16/17 23:59 23:59 23:59 23:59 Intake Total 240 500 520 220 Output Total 550 1250 Balance 240 -50 -730 220 Weight 162 lb 159 lb 3.2 oz 156 lb 6.4 oz 154 lb 2 oz General NAD CV S1 S2 RRR no murmur Lungs coarse breath sounds B/L bases Extremities L foot tenderness no edema, tophi to 1st metacarpal B/L ASSESSMENT AND PLAN: 86yo M with PMH CKD stage III, HTN, and gout presented to the ER with worsening pedal edema and dyspnea on exertion x1 week 1. Acute diastolic CHF- clinically improved. decrease in 5 lbs. will hold lasix at this time. CT done showing clear of congestion, showing emphysematous changes. multiple PVC On monitor. d/w Cardiology will d/c on holter monitor for him to f/u in office. carotid doppler to evaluate carotid bruit. hold lasix. daily weights, strict I&O. cardio and pulmonary on board. 2. Elevated troponin- likely demand ischemia in setting of tachycardia. ischemia eval as outpatient 3. Normocytic anemia-Hgb stable. iron studies pending. 4. Fever- afebrile. slight leukocytosis due to steroids. echo negative for vegetations. Cx negative. 5. Acute Gout- imporved. allopurinol reduced. on prednisone taper. 6. NAG acidosis- resolved. lactic acid normal. 7. HTN- controlled. but will hold ACEI due to worsening OCTAVIO. monitor as off. on norvasc 8. ACute on CKD stage III-likely medication induced. trending up. spoke iwth Dr Rose who is aware of kidney function. ok with going home and having it followed up next week. aware of holding acei on discharge 9. DVT ppx- hep sq 10. d/c home after carotid u/s with holter monitor. to go for blood work next week to check renal function. spoke to pt with present. verbalized understanding and agreement with plan
--- NOTE | 2017-08-16 16:45 | DS ---
Physical Exam: SUBJECTIVE: Patient seen and examined. he is feeling much better today and would like to go home. He denies SOB, dizziness, chest pain. OBJECTIVE: Vital Signs Period Temp Pulse Resp BP Sys/Dela Cruz Pulse Ox Last 24 Hr 97.4 F-99.3 F 80-117 18-22 100-124/44-70 98-99 PHYSICAL EXAM GEN: AAOx3, NAD, Lying comfortably, not in respiratory distress HEENT: PERRLA, EOMi, no JVD CV: S1, S2, tachycardic rate, regular rate and rhythm, no murmurs, rubs LUNG: Bibasilar crackles, ABD: Soft, NT, ND, normoactive BS, no organomegaly, rebound Abdomen: Nondistended, nontender to palpation, BS+, no organomegaly Extremities: trace pitting edema at b/l medial malleoli; DP pulse 2+ b/l. No cyanosis or clubbing noted. Tophi noted on R and L hallux. Tophi on fingers. LABS Laboratory Results - last 24 hr 08/15/17 08/16/17 08/16/17 07:00 06:58 06:58 WBC 13.6 H RBC 3.23 L Hgb 9.8 L Hct 31.0 L MCV 95.9 MCH 30.4 MCHC 31.7 L RDW 16.2 H Plt Count 397 MPV 8.8 Sodium 142 Potassium 4.7 Chloride 107 Carbon Dioxide 25 Anion Gap 10 BUN 52 H D Creatinine 2.9 H D Random Glucose 110 H Calcium 9.6 Magnesium 2.2 D Iron 16 L TIBC 206 L Iron Saturation 8 L HOSPITAL COURSE: Date of Admission:08/13/17 Date of Discharge: 08/16/17 Minutes to complete discharge: 40 Discharge Summary Reason For Visit: SHORTNESS OF BREATH Hospital Course: 86yo male with a PMHx of HTN, Gout, CKD Stage 3, who initially presented to the ER with L foot pain consistent with prior gout flairs. He has no issues with bearing weight, but endorses chronic ankle swelling. For the past week, this ankle swelling has progressed up to his knees bilaterally. Within that week he also has noticed progressive dyspnea on exertion. He has no history of CHF, years ago has had normal Echos and stress tests. Endorses sleeping with 2 pillows due to "comfort". He denies any chest pain or tightness. Denies history of clots, family history of clots, malignancy. Denies recent immobility. In the ER he was tachycardic with BP 150s/80s. His EKG was notable for S1Q3T3 change without ST/T wave changes. He has mild d-dimer in the 800s, but has negative troponins and is hemodynamically stable. BLLE Duplex was negative. He was prophylactically given treatment dose Lovenox 1mg/kg SQ. Also has BNP of ~ 1800 with mild metabolic acidosis pH 7.21. Given dose of IV Lasix. CXR shows mild pulmonary congestion on my read. Hospital course; Acute diastolic CHF- the pt clinically improved, he lost [address] done showing clear of congestion, showing emphysematous changes. We consulted Cardiology that recommended dc him on holter monitor for him to f/u in office Elevated troponin- likely demand ischemia in setting of tachycardia, will f/u with cardiology Normocytic anemia-Hgb stable, iron studies done leukocytosis and fever due to steroids and tachycardia resolved acute Gout attack imporved, acidosis resolved, lactic acid normalized HTN controlled but held ACEI due to worsening OCTAVIO ACute on CKD stage III likely medication induced. Discussed with Dr. Rose who is aware of kidney function. Will follow up next week as outpatient. The pt was discharged home after carotid u/s with holter monitor. The pt was given prescription to go for blood work next week to check renal function. Condition: Improved - Instructions Diet, Activity, Other Instructions: You were admitted for an exacerbation of your congestive heart failure as well as for a flair of your gout. We have held your lisinopril because your kidney function was worsening. You should not take this medication without checking with your doctor first. We have also decreased the dosage of your allopurinol from 300mg daily to 100mg twice per day. We have placed you on a steroid taper. Please take your steroids as described below 40mg 08/17 30mg 08/18-08/20 20mg 08/21-08/23 10mg 08/24-08/26 5mg 08/27-08/29 You may resume taking the rest of your home medications starting tomorrow. You will need to have your blood drawn in one week to monitor your kidney function you can make an appointment with Dr. Palomares and Antonio Pereyra on a Wednesday to have your blood drawn. You will also need to repeat the ultrasound of your neck to monitor your carotid arteries. You should follow up with a dental ceramist and a rip sawyer as an outpatient. Please see them within one week of discharge home. You should also follow up with a maintenance plumber within one week of discharge home. Please continue to follow a low sodium diet as well as a diet low in purines. If you begin to feel chest pain, shortness of breath, trouble breathing while lying flat, increased pain in the joints or if any of your symptoms get worse, please call your doctor or return to the emergency department. Referrals: Sergio Alvarez MD [Staff Physician] - Bebeto Hernadnez MD [Primary Care Provider] - Elier Palomares RES [Resident] - Twin Medina MD [Staff Physician] - Disposition: HOME - Home Medications Comprehensive Discharge Medication List: Ambulatory Orders Acetaminophen [Tylenol Arthritis] 650 mg PO Q6H PRN 08/13/17 Amlodipine Besylate 5 mg PO DAILY 08/13/17 Aspirin [ASA -] 81 mg PO DAILY 08/13/17 Sodium Polystyrene Sulfonate [Kayexalate -] 15 gm PO WEEKLY 08/13/17 Allopurinol [Zyloprim -] 100 mg PO BID #60 tablet 08/16/17 Prednisone [Deltasone -] See Taper PO ASDIR #39 tablet 08/16/17 Problem List - Problems (1) Bronchiectasis Code(s): J47.9 - BRONCHIECTASIS, UNCOMPLICATED (2) 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 Critical Care patient: No - Discharge Referral Referred to [facility] Med [facility] No
--- NOTE | 2017-08-17 01:42 | EKG ---
Test Reason : Blood Pressure : / mmHG Vent. Rate : 099 BPM Atrial Rate : 099 BPM P-R Int : 156 ms QRS Dur : 082 ms QT Int : 336 ms P-R-T Axes : 116 030 021 degrees QTc Int : 431 ms SINUS RHYTHM WITH OCCASIONAL PREMATURE VENTRICULAR COMPLEXES OTHERWISE NORMAL ECG WHEN COMPARED WITH ECG OF 13-AUG-2017 23:23, PREMATURE VENTRICULAR COMPLEXES ARE NOW PRESENT Confirmed by NELLY SOLITARIO MD ([id number]) on 08/17/2017 1:41:50 AM Referred By: Demar FRIEDMAN Confirmed By:NELLY SOLITARIO MD
--- NOTE | 2017-08-17 01:46 | EKG ---
Test Reason : Blood Pressure : / mmHG Vent. Rate : 093 BPM Atrial Rate : 093 BPM P-R Int : 162 ms QRS Dur : 082 ms QT Int : 332 ms P-R-T Axes : 114 046 026 degrees QTc Int : 412 ms NORMAL SINUS RHYTHM NORMAL ECG WHEN COMPARED WITH ECG OF 13-AUG-2017 12:07, NO SIGNIFICANT CHANGE WAS FOUND Confirmed by NELLY SOLITARIO MD ([id number]) on 08/17/2017 1:46:16 AM Referred By: Confirmed By:NELLY SOLITARIO MD
--- NOTE | 2017-08-17 01:52 | EKG ---
Test Reason : Blood Pressure : / mmHG Vent. Rate : 120 BPM Atrial Rate : 120 BPM P-R Int : 152 ms QRS Dur : 080 ms QT Int : 308 ms P-R-T Axes : 030 049 005 degrees QTc Int : 435 ms SINUS TACHYCARDIA POSSIBLE LEFT ATRIAL ENLARGEMENT BORDERLINE ECG NO PREVIOUS ECGS AVAILABLE Confirmed by NELLY SOLITARIO MD ([id number]) on 08/17/2017 1:52:30 AM Referred By: Confirmed By:NELLY SOLITARIO MD
[2017-08-18] MEDS ORDERED: predniSONE 20 MG TABLET (UD) PO SCH (10:00)
[2017-08-19] MEDS ORDERED: SODIUM POLYSTYRENE SULFONATE 15 GM/60 ML BOTTLE PO SCH (10:00)
--- NOTE | 2017-08-19 12:58 | HOL ---
Hook-up date: 2017-08-16 14:40:00 Duration: 08:39:00 Test Indications: PVC Medications: 54756 QRS complexes 21773 Ventricular ectopics which represent 23 % of total QRS comp. 1216 Supraventricular ectopics which represent 2 % of total QRS comp. * Paced QRS complexs which represent % of total QRS comp. 2 % of Time Classified as Noise VENTRICULAR ECTOPY 57451 Isolated 5120 Bigeminal Cycles 459 Couplets 79 Runs 254 Beats in Runs 6 Beats LONGEST at 120 BPM at 16:13:40 2017-08-16 3 Beats FASTEST at 170 BPM at 18:36:46 2017-08-16 SUPRAVENTRICULAR ECTOPY 1200 Isolated 8 Couplets 0 Runs 0 Beats in Runs * Beats LONGEST at * BPM at :: -- * Beats FASTEST at * BPM at :: -- HEART RATES 72 MIN at 23:10:32 2017-08-16 107 AVG 138 MAX at 16:56:05 2017-08-16 LONGEST RR 1.208 secs at 23:14:00 2017-08-16 SCANNED BBY: JUDI 08/18/17 DURATION OF HOLTER ONLY 8 HOURS AND 39 MINUTES DUE TO EXCESSIVE ARTIFACT 1. Baseline sinus rhythm with avg hr 107 and range 72-138. 2. No significant bradycardia or pauses. 3. Frequent PACs and PVCs. Frequent brief runs of NSVT, longest was 6 beats. 4. No vf, afib, aflutter, svt. 5. No diary submitted. Confirmed by JESENIA SUNG MD ([id number]) on 08/19/2017 12:58:05 PM Referred By: Demar GRANGER Overread By: JESENIA SUNG MD
[2017-08-21] MEDS ORDERED: predniSONE 10 MG TABLET (UD) PO SCH (10:00)
[2017-08-24] MEDS ORDERED: predniSONE 5 MG TABLET (UD) PO SCH (10:00)
== END 2017-08-16 15:37 | disposition home or self-care (01) | DRG 291 ==
LOC: JER 10:25 → JERBED 15:45 → J4W 19:17
PROVIDERS: ADMIT Internal Medicine; ATTEND Internal Medicine
DX: I13.0 Hypertensive heart and chronic kidney disease with heart failure and stage 1 through stage 4 chronic kidney disease, or unspecified chronic kidney disease (principal); I50.31 Acute diastolic (congestive) heart failure; E87.2 Acidosis; I24.8 Other forms of acute ischemic heart disease; R65.10 Systemic inflammatory response syndrome (SIRS) of non-infectious origin without acute organ dysfunction; N17.9 Acute kidney failure, unspecified; M10.9 Gout, unspecified; M13.88 Other specified arthritis, other site; R00.0 Tachycardia, unspecified; R06.82 Tachypnea, not elsewhere classified; D72.828 Other elevated white blood cell count; N40.0 Benign prostatic hyperplasia without lower urinary tract symptoms; M19.072 Primary osteoarthritis, left ankle and foot; M25.572 Pain in left ankle and joints of left foot; N18.3 Chronic kidney disease, stage 3 (moderate); D50.8 Other iron deficiency anemias; J43.8 Other emphysema; J47.9 Bronchiectasis, uncomplicated; R50.9 Fever, unspecified
CPT/HCPCS: 36415; 36600; 71010-TC; 71020-TC; 71250-TC; 73610-TC-LT; 73630-TC-LT; 78582-TC; 80048; 80053; 81003; 81015; 82375; 82436; 82550; 82570; 82728; 82803; 83050; 83540; 83550; 83605; 83735; 83880; 84100; 84133; 84300; 84443; 84484; 84550; 85025; 85027; 85379; 85610; 85730; 86850; 86900; 86901; 87040; 87086; 87804; 93005; 93010; 93225; 93226; 93306-TC; 93880-TC; 93970-TC; 97116-GP; 97161-GP; 99285-25; A9539; A9540; J1644

== ENCOUNTER 2019-09-27 14:29 | Inpatient (IN) | payer OTHER ==
--- NOTE | 2019-09-27 14:44 | PDOC ---
Rapid Medical Evaluation Time Seen by Provider: 09/27/19 14:31 Medical Evaluation: Allergies Allergy/AdvReac Type Severity Reaction Status Date / Time No Known Allergies Allergy Verified 08/13/17 10:31 09/27/19 14:43 CC: sent by PMD for abnormal LFT's, elevated lipase and acute on chronic renal failure. Liver Sono- Multiple masses c/w metastasis PE: Jaundiced Orders: labs, urine, EKG, CXR Patient will proceed to the ED for further evaluation. 09/27/19 14:45 09/27/19 14:46 Discharge Disposition - Diagnosis Renal insufficiency - Referrals - Patient Instructions - Post Discharge Activity
[2019-09-27 16:00] LABS: HEMATOCRIT 33.6 % (35.4-49); HEMOGLOBIN 10.9 GM/dL (11.7-16.9); MCH 32.5 pg (25.7-33.7); MCHC 32.6 g/dl (32.0-35.9); MEAN CELL VOLUME 99.7 fl (80-96); MEAN PLT VOLUME 12.2 fl (7.5-11.1); PLATELET COUNT 242 K/MM3 (134-434); RBC 3.36 M/mm3 (4.00-5.60); RDW 16.8 % (11.9-15.9); WHITE BLOOD COUNT 10.5 K/mm3 (4.0-10.0)
--- NOTE | 2019-09-27 16:02 | PDOC ---
History of Present Illness - General Chief Complaint: Revisit, Lab Variance Stated Complaint: SENT BY PCP/SICK Time Seen by Provider: 09/27/19 14:31 - History of Present Illness Initial Comments: 09/27/19 16:30 HPI: 88 y/o M with hx oh HTN, gout, CKD, CHF presenting from Dr Dyer[facility] clinic for admission given labs and ultrasound findings. He noted painless jaundice 3 weeks ago and was following with Dr Rucker for workup in the outpatient setting. Yesterday, labs showed transaminases, elevated T bili, OCTAVIO; US with concern for panc mass and liver mets, also with hydroureter. Patient has no current complaints. No pain. Reports dark urine and ?lizzy colored stools. Denies fever, chills, chest pain, abd pain, SOB, weakness, falls PMHx: as noted above ROS: as noted SHx: Denies tobacco use; no alcohol use; no rec drugs Allergies: NKDA ROS: GENERAL/CONSTITUTIONAL: No fever or chills. No weakness. HEAD, EYES, EARS, NOSE AND THROAT: No change in vision. No ear pain or discharge. No sore throat. CARDIOVASCULAR: No chest pain or shortness of breath RESPIRATORY: No cough, wheezing, or hemoptysis. GASTROINTESTINAL: No nausea, vomiting, diarrhea or constipation. GENITOURINARY: No dysuria, frequency, or change in urination. MUSCULOSKELETAL: No joint or muscle swelling or pain. No neck or back pain. SKIN: No rash NEUROLOGIC: No headache, vertigo, loss of consciousness, or change in strength/ sensation. ENDOCRINE: No increased thirst. No abnormal weight change HEMATOLOGIC/LYMPHATIC: No anemia, easy bleeding, or history of blood clots. ALLERGIC/IMMUNOLOGIC: No hives or skin allergy. PE: GENERAL: Awake, alert, and fully oriented, no acute distress HEAD: No signs of trauma, normocephalic, atraumatic EYES: EOMI, scleral icterus, conjunctiva clear ENT: Auricles normal inspection, hearing grossly normal, nares patent, oropharynx clear without exudates. Moist mucosa. Sublingual jaundice NECK: Normal ROM, no lymphadenopathy LUNGS: No increased work of breathing, symmetrical chest rise, clear to auscultation bilaterally, no wheezes, crackles or rhonchi HEART: Regular rate, regular rhythm, normal S1 and S2, no murmur, peripheral pulses 2+ and equal bilaterally. ABDOMEN: Soft, nondistended, mild generalized ttp, normoactive bowel sounds. No guarding, no rebound. No masses. No CVAT MUSCULOSKELETAL: FROM NEUROLOGICAL: Cranial nerves II through XII grossly intact. Normal speech, normal gait, no focal sensorimotor deficits SKIN: jaundice Past History - Past Medical History Allergies/Adverse Reactions: Allergies Allergy/AdvReac Type Severity Reaction Status Date / Time No Known Allergies Allergy Verified 09/27/19 14:43 Home Medications: Ambulatory Orders Acetaminophen [Tylenol Arthritis] 650 mg PO Q6H PRN 08/13/17 Amlodipine Besylate 5 mg PO DAILY 08/13/17 Aspirin [ASA -] 81 mg PO DAILY 08/13/17 Sodium Polystyrene Sulfonate [Kayexalate -] 15 gm PO WEEKLY 08/13/17 Allopurinol [Zyloprim -] 100 mg PO BID #60 tablet 08/16/17 predniSONE [Deltasone -] See Taper PO ASDIR #39 tablet 08/16/17 COPD: No HTN: Yes Hypercholesterolemia: Yes Kidney Stones: Yes (Chronic renal failure) - Psycho Social/Smoking Cessation Hx Smoking History: Never smoked Have you smoked in the past 12 months: No Hx Alcohol Use: No Drug/Substance Use Hx: No Substance Use Type: None *Physical Exam - Vital Signs Last Vital Signs Temp Pulse Resp BP Pulse Ox 98.1 F 111 H 16 117/63 97 09/27/19 14:44 09/27/19 14:44 09/27/19 14:44 09/27/19 14:44 09/27/19 14:44 ED Treatment Course - LABORATORY CBC & Chemistry Diagram: 09/27/19 15:15 09/27/19 15:15 - ADDITIONAL ORDERS Additional order review: 09/27/19 15:15 RBC 3.36 L MCV 99.7 H MCHC 32.6 RDW 16.8 H MPV 12.2 H Neutrophils % 63.2 D Lymphocytes % 23.8 D Monocytes % 10.7 H Eosinophils % 0.3 D Basophils % 2.0 Medical Decision Making - Medical Decision Making 09/27/19 18:52 88 y/o M with hx oh HTN, gout, CKD, CHF presenting from Dr Dyer's clinic for admission given labs and ultrasound findings with concern for malignancy. VSS, AF. PE with jaundice and mild generalized abdominal ttp. -labs already drawn in outpatient setting today -will add cxr, ekg, bnp -further discussion with Dr Dueñas, Dr Rucker, Dr Dyer, patient will get consult with Dr Shepherd for hyrodureter and CT chest/abd/pelvis with oral contrast -admitted to Dr Frazier Discharge - Discharge Information Problems reviewed: Yes Clinical Impression/Diagnosis: Renal insufficiency, OCTAVIO (acute kidney injury), Hyperbilirubinemia, Transaminitis - Follow up/Referral - Patient Discharge Instructions - Post Discharge Activity
[2019-09-27 16:03] LABS: ADD RBC MORPHOLOGY YES
[2019-09-27 16:19] LABS: HYALINE CASTS 21 /lpf (0-8); URINE APPEARANCE TURBID; URINE BILIRUBIN 3+ (NEGATIVE); URINE COLOR DK YELLOW; URINE GLUCOSE (UA) NEGATIVE (NEGATIVE); URINE KETONE NEGATIVE (NEGATIVE); URINE LEUK ESTERASE NEGATIVE (NEGATIVE); URINE NITRITE NEGATIVE (NEGATIVE); URINE PROTEIN 2+ (NEGATIVE); URINE UROBILINOGEN 0.2 mg/dL (0.2-1.0); URINE WBC 7 /hpf (0-5)
--- NOTE | 2019-09-27 16:25 | PDOC ---
Documentation entered by Dawood Hickman SCRIBE, acting as scribe for Luis Rose MD. Luis Rose MD: This documentation has been prepared by the Marylou ríos Nirvannie, SCRIBE, under my direction and personally reviewed by me in its entirety. I confirm that the documentation accurately reflects all work, treatment, procedures, and medical decision making performed by me. Attending Attestation - Resident Resident Name: VirgilioEllagold - ED Attending Attestation I have performed the following: I have examined & evaluated the patient, The case was reviewed & discussed with the resident, I agree w/resident's findings & plan, Exceptions are as noted - HPI HPI: 09/27/19 16:22 The patient is a 88 year old male with a significant HTN, gout, and renal insufficiency, who presents to the ED for abnormal LFTs and multiple liver masses on outpatient. Patient was advised by his PCP to report to the ED for further evaluation. Allergies: NKDA Primary Care Physician: Dr. Sury Hernandez - Physicial Exam PE: 09/27/19 16:23 Patient is awake and alert, frail appearing, in no distress Normocephalic and atraumatic PERRLA, EOMI, positive scleral icterus CTA RRR abdomen: soft, nondistended, minimal right upper quadrant tenderness to deep palpation - Medical Decision Making 09/27/19 16:24 Patient is a frail-appearing 88-year-old male who presents to the ER with extensive jaundice related to direct hyperbilirubinemia and likely liver metastases. Will admit for MRCP. Will consult GI.
[2019-09-27] MEDS: DEXTROSE 5%-0.45% SALINE 1,000 ML IV SCH (17:32)
[2019-09-27 17:51] LABS: ALBUMIN 2.6 g/dl (3.4-5.0); BILIRUBIN,TOTAL 12.7 mg/dL (0.2-1); BLOOD UREA NITROGEN 59.4 mg/dL (7-18); CALCIUM 9.3 mg/dL (8.5-10.1); N-TERMINAL BNP 553.6 pg/ml (5-450); POTASSIUM 4.7 mmol/L (3.5-5.1); TOT PROT 5.9 g/dl (6.4-8.2)
--- NOTE | 2019-09-27 18:38 | CON.GI ---
Consult Consult Specialty:: Gastroenterology Referred by:: Dr. Frazier Reason for Consultation:: Jaundice - History of Present Illness Chief Complaint: New onset painless jaundice History of Present Illness: 88M was referred to me office for painless jaundice yesterday. He denies any abdominal pain and pruritus. Sonogram reveals liver metastases and a dilated CBD. Gallstones vs a GB mass. He had a colonoscopy in 2008 that yielded a sigmoid adenoma. No polyps were found at his last colonoscopy on 12/02/10 when only diverticulosi was found. An EGD in 2008 revealed H pylori gastritis which was treated. EGD on 01/27/11 revealed no residual HP but intestinal metaplasia was found. - History Source History Provided By: Patient, Medical Record Limitations to Obtaining History: No Limitations - Past Medical History Cardio/Vascular: Yes: AFIB (had ablation at [facility]), CHF, HTN, Hyperlipdemia Pulmonary: Yes: COPD, Other (pleural effusions requiring thoracentesis) Gastrointestinal: Yes: Diverticulosis, Gastritis (H pylori 2008), Other (colon adenoma 2008) Hepatobiliary: Yes: Cholelithiasis Renal/: Yes: Renal Failure, BPH Rheumatology: Yes: Gout - Past Surgical History Past Surgical History: Yes: Cataract Removal, Colonoscopy, Tonsillectomy, Upper Endoscopy - Alcohol/Substance Use Hx Alcohol Use: No (none recently) History of Substance Use: reports: None - Smoking History Smoking history: Former smoker Have you smoked in the past 12 months: No If you are a former smoker, when did you quit?: 1973 - Social History Usual Living Arrangement: With Spouse ADL: Independent 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[place] Place of : Other ([place]) Home Medications - Allergies Allergies/Adverse Reactions: Allergies Allergy/AdvReac Type Severity Reaction Status Date / Time No Known Allergies Allergy Verified 09/27/19 14:43 - Home Medications Home Medications: Ambulatory Orders Acetaminophen [Tylenol Arthritis] 650 mg PO Q6H PRN 08/13/17 Amlodipine Besylate 5 mg PO DAILY 08/13/17 Aspirin [ASA -] 81 mg PO DAILY 08/13/17 Sodium Polystyrene Sulfonate [Kayexalate -] 15 gm PO WEEKLY 08/13/17 Allopurinol [Zyloprim -] 100 mg PO BID #60 tablet 08/16/17 predniSONE [Deltasone -] See Taper PO ASDIR #39 tablet 08/16/17 Family Medical History Family Hx Cancer: Father (prostate), Brother (prostate cancer) Other Family History: M lived to 89 Review of Systems - Review of Systems Constitutional: reports: Unintentional Wgt. Loss Eyes: reports: No Symptoms HENT: reports: No Symptoms Neck: reports: No Symptoms Cardiovascular: reports: Shortness of Breath Respiratory: reports: Exercise Intolerance Gastrointestinal: reports: No Symptoms Musculoskeletal: reports: Joint Pain Physical Exam-GI Vital Signs: Vital Signs Temperature 98.1 F 09/27/19 14:44 Pulse Rate 111 H 09/27/19 14:44 Respiratory Rate 16 09/27/19 14:44 Blood Pressure 117/63 09/27/19 14:44 O2 Sat by Pulse Oximetry (%) 97 09/27/19 14:44 CBC,CMP WBC 10.5 K/mm3 (4.0-10.0) H 09/27/19 15:15 RBC 3.36 M/mm3 (4.00-5.60) L 09/27/19 15:15 Hgb 10.9 GM/dL (11.7-16.9) L 09/27/19 15:15 Hct 33.6 % (35.4-49) L 09/27/19 15:15 MCV 99.7 fl (80-96) H 09/27/19 15:15 MCH 32.5 pg (25.7-33.7) 09/27/19 15:15 MCHC 32.6 g/dl (32.0-35.9) 09/27/19 15:15 RDW 16.8 % (11.9-15.9) H 09/27/19 15:15 Plt Count 242 K/MM3 (134-434) 09/27/19 15:15 MPV 12.2 fl (7.5-11.1) H 09/27/19 15:15 Absolute Neuts (auto) K/mm3 (1.5-8.0) 09/27/19 15:15 Neutrophils % Geological E Logger 09/27/19 15:15 Lymphocytes % Geological E Logger 09/27/19 15:15 Monocytes % Geological E Logger 09/27/19 15:15 Eosinophils % Geological E Logger 09/27/19 15:15 Basophils % Geological E Logger 09/27/19 15:15 Nucleated RBC % 0 % (0-0) 09/27/19 15:15 Sodium 141 mmol/L (136-145) 09/27/19 15:15 Potassium 4.7 mmol/L (3.5-5.1) 09/27/19 15:15 Chloride 108 mmol/L (98-107) H 09/27/19 15:15 Carbon Dioxide 20 mmol/L (21-32) L 09/27/19 15:15 Anion Gap 13 MMOL/L (8-16) 09/27/19 15:15 BUN 59.4 mg/dL (7-18) H 09/27/19 15:15 Creatinine 4.0 mg/dL (0.55-1.3) H 09/27/19 15:15 Est GFR (CKD-EPI)AfAm 14.41 09/27/19 15:15 Est GFR (CKD-EPI)NonAf 12.43 09/27/19 15:15 Random Glucose 98 mg/dL (74-106) 09/27/19 15:15 Calcium 9.3 mg/dL (8.5-10.1) 09/27/19 15:15 Total Bilirubin 12.7 mg/dL (0.2-1) H 09/27/19 15:15 Direct Bilirubin 10.5 mg/dL (0.0-0.2) H 09/27/19 16:35 AST 599 U/L (15-37) H 09/27/19 15:15 ALT 296 U/L (13-61) H 09/27/19 15:15 Alkaline Phosphatase 1013 U/L (45-117) H 09/27/19 15:15 B-Natriuretic Peptide 553.6 pg/ml (5-450) H 09/27/19 15:15 Total Protein 5.9 g/dl (6.4-8.2) L 09/27/19 15:15 Albumin 2.6 g/dl (3.4-5.0) L 09/27/19 15:15 Lipase 901 U/L (73-393) H 09/27/19 15:15 Current Medications Generic Name Dose Route Start Last Admin Trade Name Freq PRN Reason Stop Dose Admin Amlodipine Besylate 5 mg 09/28/19 10:00 Norvasc - PO DAILY [facility] Aspirin 81 mg 09/28/19 10:00 Asa - PO DAILY [facility] Dextrose/Sodium Chloride 1,000 mls @ 75 mls/hr 09/27/19 17:15 09/27/19 17:32 D5-1/2ns - IV 75 mls/hr ASDIR JEISON Administration Prednisone 5 mg 09/27/19 18:45 Deltasone - PO ASDIR JEISON Constitutional: Yes: Calm Eyes: Yes: Sclera Icterus HENT: Yes: Atraumatic Neck: Yes: Trachea Midline Cardiovascular: Yes: Regular Rate and Rhythm Respiratory: Yes: CTA Bilaterally Gastrointestinal Inspection: Yes: Distention ...Auscultate: Yes: Normoactive Bowel Sounds ...Palpate: Yes: Mass (right subcostal), Soft ...Percussion: Yes: Other ...Rectal Exam: Yes: Guaiac Positive (rhodes colored g positive stool) Labs: CBC, BMP 09/27/19 15:15 09/27/19 15:15 Imaging - Results Ultrasound: Report Reviewed ( Final Report US ABDOMEN US Show Printer- Friendly Version Patient Name: Jorge Luis Ham : 1930 ID: [id number] Study Date: 27-Sep-2019 10:27 Casey Richard Name: JORGE LUIS HAM DEPARTMENT OF RADIOLOGY Phys: Bharti Rucker MD : 1930 Age: 88 Sex: M [facility] Acct: [id number] Loc: [facility] Exam Date: 09/27/19 Status: REG [place] [id number] Unit Number: [id number] EXAM#: TYPE/EXAM: RESULT: [id number] US/ABDOMEN US History of jaundice Upper abdomen ultrasound. Compared to prior CT scan of the chest dated 08/15/2017 The liver measures 15 cm in sagittal length with heterogeneous echotexture. Multiple solid nodules are present with the largest measuring 7.4 x 5 cm The gallbladder is adequately distended with borderline thickening of its wall and an intraluminal nonmobile stone that some of the images appears like is soft tissue density with calcification. Cannot rule out a mass lesion or polyp with calcifications. There is [id number] dilatation of the central intrahepatic bile ducts. Common bile duct is quite dilated measuring 2 cm in AP dimension. Limited visualization of the pancreas with a dilated main pancreatic duct measuring 4 mm. The right and left kidney measured 8.7 and 10 cm , respectively. There is a simple cyst in the right renal upper pole measuring 1.3 hydronephrosis and dilatation of the proximal left ureter. The spleen measures 7.8 cm in sagittal length with homogeneous echotexture. Visualized portion of the proximal abdominal aorta and inferior vena cava appear unremarkable. Normal flow in the main portal vein. IMPRESSION: Heterogeneous echotexture of the liver with multiple solid mass lesions the largest measuring 7.4 x 5 cm, suspicious for malignancy. Nonmobile gallstone versus a small mass/polyp with calcification in the entire measurement of which is 1.2 cm. Borderline thickening of the gallbladder wall without sonographic evidence of acute cholecystitis. Gleg-qg-fjsovqgg dilatation of the intrahepatic bile ducts and significant dilatation of the common bile duct measuring 2 cm. Limited visualization of the pancreas with a dilated main pancreatic duct measuring 4 mm. Further evaluation with MRI of the abdomen and MRCP is needed. Small right renal upper pole simple cyst measuring 1.3 cm. Moderate left renal hydronephrosis and proximal hydroureter for which further evaluation is needed. Case discussed with Dr. Bharti Rucker, caring attending physician Reported By: Alex Glover MD 09/27/19 1230 Bharti Rucker Technologist: Marie Tang Transcribed Date/Time: 09/27/19 1230 Metal Bonding Assembler: Alex Glover Printed Date/Time: By: Signed by: Alex Glover Signed on: 27-Sep-2019 12:31) Problem List - Problems (1) Painless jaundice Code(s): R17 - UNSPECIFIED JAUNDICE (2) Obstructive jaundice Code(s): K83.1 - OBSTRUCTION OF BILE DUCT (3) Liver masses Code(s): R16.0 - HEPATOMEGALY, NOT ELSEWHERE CLASSIFIED (4) Acquired dilation of common bile duct Code(s): K83.8 - OTHER SPECIFIED DISEASES OF BILIARY TRACT (5) Dilated pancreatic duct Code(s): K86.89 - OTHER SPECIFIED DISEASES OF PANCREAS (6) Gallbladder mass Code(s): K82.8 - OTHER SPECIFIED DISEASES OF GALLBLADDER (7) History of adenomatous polyp of colon Code(s): Z86.010 - PERSONAL HISTORY OF COLONIC POLYPS (8) COPD (chronic obstructive pulmonary disease) with emphysema Code(s): J43.9 - EMPHYSEMA, UNSPECIFIED (9) Hydronephrosis Code(s): N13.30 - UNSPECIFIED HYDRONEPHROSIS (10) Renal failure (ARF), acute on chronic Code(s): N17.9 - ACUTE KIDNEY FAILURE, UNSPECIFIED; N18.9 - CHRONIC KIDNEY DISEASE, UNSPECIFIED (11) Hypotension Code(s): I95.9 - HYPOTENSION, UNSPECIFIED (12) Hyperlipidemia Code(s): E78.5 - HYPERLIPIDEMIA, UNSPECIFIED (13) H/O paroxysmal supraventricular tachycardia Code(s): Z86.79 - PERSONAL HISTORY OF OTHER DISEASES OF THE CIRCULATORY SYSTEM (14) CHF (congestive heart failure) Code(s): I50.9 - HEART FAILURE, UNSPECIFIED (15) Gout Code(s): M10.9 - GOUT, UNSPECIFIED Assessment/Plan Impression: - Painless obstructive jaundice with double duct dilations and liver masses is pancreatic cancer until proven otherwise. He could alternatively have cholangiocarcinoma, ampulllary cancer or gallbladder carcinoma. 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 I have discussed the need to undergo ERCP to at least palliatively provide biliary drainage before hepatoma coma ensues. I have discussed the potential for such complications as perforation and hemorrhage with Armen and his as well as the potential for ERCP induced pancreatitis leading to multiorgan failure and they have mutially consent. I will need to determine whether to do it here or refer to a tertiary care center. - Renal resuscitation and evaluation of hydronephrosis - Ca 19.9 I discussed the case with Dr Frazier,. Sury Pereyra and earlier with DR Medina
[2019-09-27] MEDS ORDERED: predniSONE 5 MG TABLET (UD) PO SCH (18:45)
[2019-09-27] MEDS ORDERED: ACETAMINOPHEN 325 MG TABLET (FP) PO PRN (19:26)
--- NOTE | 2019-09-27 19:28 | HP ---
Admitting History and Physical - Primary Care Physician PCP: Nirav Frazier - Admission Chief Complaint: jaundice, ARF History of Present Illness: Pt was noticed over the last few days to develop jaundice, elevated LFTs, Liver US was positive for liver masses and dilated CBD; repeated labs showed ARF and pt was recommended to come to ER for evaluation. History Source: Patient, Family Member (his is at bedside.) - Past Medical History Cardiovascular: Yes: AFIB (had ablation at [facility]), CHF, HTN, Hyperlipdemia Pulmonary: Yes: COPD, Other (pleural effusions requiring thoracentesis) Gastrointestinal: Yes: Diverticulosis, Gastritis (H pylori 2008), Other (colon adenoma 2008) Hepatobiliary: Yes: Cholelithiasis Renal/: Yes: Renal Failure, BPH Rheumatology: Yes: Gout - Past Surgical History Past Surgical History: Yes: Cataract Removal, Colonoscopy, Tonsillectomy, Upper Endoscopy - Smoking History Smoking history: Former smoker Have you smoked in the past 12 months: No If you are a former smoker, when did you quit?: 1973 - Alcohol/Substance Use Hx Alcohol Use: No (none recently) History of Substance Use: reports: None - Social History ADL: Independent 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[place] Home Medications - Allergies Allergies/Adverse Reactions: Allergies Allergy/AdvReac Type Severity Reaction Status Date / Time No Known Allergies Allergy Verified 09/27/19 14:43 - Home Medications Home Medications: Ambulatory Orders Acetaminophen [Tylenol Arthritis] 650 mg PO Q6H PRN 08/13/17 Amlodipine Besylate 5 mg PO DAILY 08/13/17 Aspirin [ASA -] 81 mg PO DAILY 08/13/17 Sodium Polystyrene Sulfonate [Kayexalate -] 15 gm PO WEEKLY 08/13/17 Allopurinol [Zyloprim -] 100 mg PO BID #60 tablet 08/16/17 predniSONE [Deltasone -] See Taper PO ASDIR #39 tablet 08/16/17 Review of Systems - Review of Systems Constitutional: denies: Chills, Fever Eyes: denies: Blurred Vision, Double Vision HENT: denies: Ear Discharge, Ear Pain, Nasal Congestion, Throat Pain Neck: denies: Pain on Movement, Stiffness Cardiovascular: denies: Chest Pain, Edema, Palpitations Respiratory: reports: Cough. denies: SOB, Wheezing Gastrointestinal: denies: Abdominal Pain, Diarrhea, Nausea, Vomiting Genitourinary: denies: Burning, Dysuria Musculoskeletal: denies: Back Pain, Muscle Pain Integumentary: denies: Bruising, Rash Neurological: denies: Change in LOC, Unsteady Gait, Weakness Endocrine: denies: Excessive Sweating, Intolerance to Cold Hematology/Lymphatic: denies: Easily Bruised, Excessive Bleeding Psychiatric: denies: Anxiety, Depression Physical Examination Vital Signs: Vital Signs Temperature 98.1 F 09/27/19 14:44 Pulse Rate 111 H 09/27/19 14:44 Respiratory Rate 16 09/27/19 14:44 Blood Pressure 117/63 09/27/19 14:44 O2 Sat by Pulse Oximetry (%) 97 09/27/19 15:15 Constitutional: Yes: No Distress, Calm Eyes: Yes: Conjunctiva Clear, EOM Intact HENT: No: Drooling, Epistaxis, Rhinnorhea Neck: Yes: Trachea Midline. No: Lymphadenopathy Cardiovascular: Yes: Regular Rate and Rhythm, S1, S2 Respiratory: Yes: Regular, CTA Bilaterally. No: Rales Gastrointestinal: Yes: Normal Bowel Sounds, Soft. No: Hepatomegaly ...Rectal Exam: Yes: Deferred Renal/: No: CVA Tenderness - Left, CVA Tenderness - Right Musculoskeletal: No: Back Pain, Joint Swelling Extremities: No: Cold, Cool, Cyanosis Edema: No Integumentary: No: Bruising, Rash Neurological: Yes: Alert, Oriented Labs: CBC, BMP 09/27/19 15:15 09/27/19 15:15 Imaging - Results X-ray: Report Reviewed Problem List - Problems (1) Acute renal failure Code(s): N17.9 - ACUTE KIDNEY FAILURE, UNSPECIFIED (2) Painless jaundice Code(s): R17 - UNSPECIFIED JAUNDICE (3) Acquired dilation of common bile duct Code(s): K83.8 - OTHER SPECIFIED DISEASES OF BILIARY TRACT (4) Emphysema of lung Code(s): J43.9 - EMPHYSEMA, UNSPECIFIED (5) Hypertension Code(s): I10 - ESSENTIAL (PRIMARY) HYPERTENSION (6) COPD (chronic obstructive pulmonary disease) with emphysema Code(s): J43.9 - EMPHYSEMA, UNSPECIFIED (7) Hydronephrosis Code(s): N13.30 - UNSPECIFIED HYDRONEPHROSIS (8) Liver masses Code(s): R16.0 - HEPATOMEGALY, NOT ELSEWHERE CLASSIFIED (9) A-fib Code(s): I48.91 - UNSPECIFIED ATRIAL FIBRILLATION Assessment/Plan GI consult; pt's case was reviewed with Dr. Rucker. MRCP Renal consult IVF consult Pulmonary consult. AM labs
[2019-09-27] MEDS ORDERED: metoPROLOL SUCCINATE 25 MG TAB.SR.24H (FP) PO SCH (22:00)
[2019-09-27 22:08] LABS: ANISOCYTOSIS 2+; MACROCYTOSIS 1+; PLATELET ESTIMATE NORMAL; TARGET CELLS 1+
[2019-09-27] MEDS: ALLOPURINOL 100 MG TABLET (FP) PO SCH (22:08)
[2019-09-27] MEDS: HEPARIN NA (PORCINE) 5,000 UNITS/ML 1ML VIAL SQ SCH (22:08)
[2019-09-27] MEDS: PANTOPRAZOLE 40 MG TABLET PO SCH (22:08)
[2019-09-28 01:27] VITALS: BMI 26.3
[2019-09-28] MEDS: HEPARIN NA (PORCINE) 5,000 UNITS/ML 1ML VIAL SQ SCH (06:14)
[2019-09-28] MEDS: DEXTROSE 5%-0.45% SALINE 1,000 ML IV SCH (06:16)
[2019-09-28 07:12] LABS: BASO % 0.7 % (0-2.0); EOS % 0.3 % (0-4.5); HEMATOCRIT 31.6 % (35.4-49); HEMOGLOBIN 10.5 GM/dL (11.7-16.9); LYMPH % 40.3 % (8-40); MCH 33.1 pg (25.7-33.7); MCHC 33.3 g/dl (32.0-35.9); MEAN CELL VOLUME 99.6 fl (80-96); MEAN PLT VOLUME 12.4 fl (7.5-11.1); MONO % 9.7 % (3.8-10.2); PLATELET COUNT 218 K/MM3 (134-434); RBC 3.18 M/mm3 (4.00-5.60); RDW 16.1 % (11.9-15.9)
--- NOTE | 2019-09-28 07:16 | PN ---
Progress Note, Physician Chief Complaint: in bed NAD VSS afebrile no c/o no pain no N/V seen by GI, cardiology - Current Medication List Current Medications: Active Medications Acetaminophen (Tylenol -) 650 mg PO BID PRN PRN Reason: PAIN Allopurinol (Zyloprim -) 100 mg PO BID [facility] Last Admin: 09/27/19 22:08 Dose: 100 mg Amlodipine Besylate (Norvasc -) 5 mg PO DAILY [facility] Aspirin (Asa -) 81 mg PO DAILY [facility] Heparin Sodium (Porcine) (Heparin -) 5,000 unit SQ TID [facility] Last Admin: 09/28/19 06:14 Dose: 5,000 unit Dextrose/Sodium Chloride (D5-1/2ns -) 1,000 mls @ 75 mls/hr IV ASDIR [facility] Last Admin: 09/28/19 06:16 Dose: 75 mls/hr Metoprolol Succinate (Toprol Xl -) 12.5 mg PO HS [facility] Last Admin: 09/27/19 22:07 Dose: 12.5 mg Pantoprazole Sodium (Protonix -) 40 mg PO BID [facility] Last Admin: 09/27/19 22:08 Dose: 40 mg Prednisone (Deltasone -) 5 mg PO ASDIR [facility] - Objective Vital Signs: Vital Signs Temperature 98.3 F 09/28/19 06:00 Pulse Rate 99 H 09/28/19 06:00 Respiratory Rate 18 09/28/19 06:00 Blood Pressure 111/56 L 09/28/19 06:00 O2 Sat by Pulse Oximetry (%) 97 09/27/19 22:00 Constitutional: Yes: No Distress, Calm Eyes: Yes: Conjunctiva Clear HENT: Yes: Atraumatic Neck: Yes: Supple Cardiovascular: Yes: Regular Rate and Rhythm Respiratory: Yes: CTA Bilaterally Gastrointestinal: Yes: Soft. No: Tenderness Genitourinary: No: Hematuria Musculoskeletal: No: Joint Stiffness, Joint Swelling Extremities: No: Cold, Cool Edema: No Integumentary: Yes: Jaundice Neurological: Yes: WNL, Alert, Oriented ...Motor Strength: WNL Psychiatric: Yes: WNL, Alert, Oriented. No: Agitated, Suicidal Ideation - ....Imaging Other: Report Reviewed Assessment/Plan 88 YOM ASHD AFib CHF COPD admitted with painless jaundice cholestasis and ARF; liver masses on US GI and renal eval Abd pelvic chest CT done results pending further management per GI and renal; biliary stent? cardiology f/u d/w pt and staff
[2019-09-28 08:07] LABS: ALBUMIN 2.3 g/dl (3.4-5.0); BILIRUBIN,DIRECT 10.2 mg/dL (0.0-0.2); BILIRUBIN,TOTAL 11.9 mg/dL (0.2-1); BLOOD UREA NITROGEN 55.1 mg/dL (7-18); CALCIUM 9.1 mg/dL (8.5-10.1); CREATININE 3.6 mg/dL (0.55-1.3); POTASSIUM 4.2 mmol/L (3.5-5.1); TOT PROT 5.2 g/dl (6.4-8.2); URIC ACID 7.2 mg/dL (2.6-7.2)
--- NOTE | 2019-09-28 09:09 | PN ---
Progress Note (short form) - Note Progress Note: Please review consultation dated 09/27/19 placed in the chart. 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 status post radiofrequency ablation. History of chronic kidney disease stage, bullous emphysema, bronchiectasis. 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 Patient denies having pruritus, nausea, vomiting, no history of abdominal pain or discomfort no history of early satiety and denies any change in bowel habits. Recent abdominal ultrasound had revealed heterogenic echotexture of the liver with multiple solid mass lesions the largest measuring 7.4 in 2 5 cm suspicious for malignancy( please see report). Patient is being evaluated for MRCP. Patient was eating breakfast and continues to deny any GI symptoms. There is no history of dyspnea either at rest or with exertion, no exertional chest pain or discomfort. No paroxysmal nocturnal dyspnea or orthopnea reported. Active Medications Acetaminophen (Tylenol -) 650 mg PO BID PRN PRN Reason: PAIN Allopurinol (Zyloprim -) 100 mg PO BID COUNT INCLUDES THE [facility] Last Admin: 09/28/19 09:12 Dose: 100 mg Amlodipine Besylate (Norvasc -) 5 mg PO DAILY COUNT INCLUDES THE [facility] Last Admin: 09/28/19 09:12 Dose: 5 mg Aspirin (Asa -) 81 mg PO DAILY COUNT INCLUDES THE [facility] Last Admin: 09/28/19 09:12 Dose: 81 mg Heparin Sodium (Porcine) (Heparin -) 5,000 unit SQ TID COUNT INCLUDES THE [facility] Last Admin: 09/28/19 06:14 Dose: 5,000 unit Dextrose/Sodium Chloride (D5-1/2ns -) 1,000 mls @ 75 mls/hr IV ASDIR COUNT INCLUDES THE [facility] Last Admin: 09/28/19 06:16 Dose: 75 mls/hr Metoprolol Succinate (Toprol Xl -) 12.5 mg PO HS COUNT INCLUDES THE [facility] Last Admin: 09/27/19 22:07 Dose: 12.5 mg Pantoprazole Sodium (Protonix -) 40 mg PO BID COUNT INCLUDES THE [facility] Last Admin: 09/28/19 09:11 Dose: 40 mg Prednisone (Deltasone -) 5 mg PO ASDIR JEISON 88-year-old gentleman was in no acute distress, deeply jaundiced, no pallor or cyanosis, no clubbing. Last Vital Signs Temp Pulse Resp BP Pulse Ox 98.3 F 99 H 18 111/56 L 97 09/28/19 06:00 09/28/19 06:00 09/28/19 06:00 09/28/19 06:00 09/27/19 22:00 Neck:upple, no jugular venous distention, carotids were 2+, upstrokes, hepatojugular reflux was negative, carotids were 2+, faint right carotid bruit, no thyromegaly was present. Unable to appreciate supraclavicular or submandibular lymphadenopathy. Heart: PMI was in the fifth intercostal space, no heaves or thrills, S1 and S2 were normal, grade 2/6 decrescendo systolic murmur was heard along the left sternal border and apex that was poorly radiating. No diastolic murmur or gallops were heard. Lungs: Bilateral by basilar crepitations and scattered rhonchi. Abdomen: Soft, protuberant slight right upper quadrant guarding, liver was 2 fingerbreadths below the right costal margin and appeared firm. No splenomegaly was appreciated. no clear-cut ascites on percussion. Bowel sounds were present, no bruits were heard. extremities: No calf tenderness or dependent edema femoral pulses were 2+,, dorsalis pedis pulses were 1+ posterior tibial pulses could not be palpated. Laboratory Results - last 24 hr 09/27/19 09/27/19 09/27/19 15:15 15:15 15:15 WBC 10.5 H RBC 3.36 L Hgb 10.9 L Hct 33.6 L MCV 99.7 H MCH 32.5 MCHC 32.6 RDW 16.8 H Plt Count 242 MPV 12.2 H Absolute Neuts (auto) Neutrophils % Dean Neutrophils % (Manual) 89.0 H Band Neutrophils % 0.0 Lymphocytes % Dean Lymphocytes % (Manual) 3.0 L D Monocytes % Dean Monocytes % (Manual) 8 D Eosinophils % Dean Eosinophils % (Manual) 0.0 Basophils % Dean Basophils % (Manual) 0.0 Myelocytes % (Man) 0 Promyelocytes % (Man) 0 Blast Cells % (Manual) 0 Nucleated RBC % 0 Metamyelocytes 0 Hypochromia 1+ Platelet Estimate Normal Platelet Comment No clumping noted Polychromasia 0 Poikilocytosis 0 Anisocytosis 2+ Microcytosis 0 Macrocytosis 1+ Target Cells 1+ Sodium 141 Potassium 4.7 Chloride 108 H Carbon Dioxide 20 L Anion Gap 13 BUN 59.4 H Creatinine 4.0 H Est GFR (CKD-EPI)AfAm 14.41 Est GFR (CKD-EPI)NonAf 12.43 Random Glucose 98 Uric Acid Calcium 9.3 Total Bilirubin 12.7 H Direct Bilirubin AST 599 H ALT 296 H Alkaline Phosphatase 1013 H C-Reactive Protein B-Natriuretic Peptide 553.6 H Total Protein 5.9 L Albumin 2.6 L Lipase 901 H Urine Color Dk yellow Urine Appearance Turbid Urine pH 5.0 Ur Specific [place] 1.016 Urine Protein 2+ H Urine Glucose (UA) Negative Urine Ketones Negative Urine Blood 3+ H Urine Nitrite Negative Urine Bilirubin 3+ H Urine Urobilinogen 0.2 Ur Leukocyte Esterase Negative Urine WBC (Auto) 7 Urine RBC (Auto) 5-10 Urine Casts (Auto) 21 U Pathogenic Cast Auto 0-2 U Epithel Cells (Auto) 2.0 Urine Bacteria (Auto) 1.0 Blood Type Antibody Screen 09/27/19 09/27/19 09/28/19 16:35 16:35 05:45 WBC RBC Hgb Hct MCV MCH MCHC RDW Plt Count MPV Absolute Neuts (auto) Neutrophils % Neutrophils % (Manual) Band Neutrophils % Lymphocytes % Lymphocytes % (Manual) Monocytes % Monocytes % (Manual) Eosinophils % Eosinophils % (Manual) Basophils % Basophils % (Manual) Myelocytes % (Man) Promyelocytes % (Man) Blast Cells % (Manual) Nucleated RBC % Metamyelocytes Hypochromia Platelet Estimate Platelet Comment Polychromasia Poikilocytosis Anisocytosis Microcytosis Macrocytosis Target Cells Sodium 140 Potassium 4.2 Chloride 109 H Carbon Dioxide 20 L Anion Gap 11 BUN 55.1 H Creatinine 3.6 H Est GFR (CKD-EPI)AfAm 16.36 Est GFR (CKD-EPI)NonAf 14.12 Random Glucose 93 Uric Acid 7.2 Calcium 9.1 Total Bilirubin 11.9 H Direct Bilirubin 10.5 H 10.2 H AST 534 H ALT 261 H Alkaline Phosphatase 993 H C-Reactive Protein 4.8 H B-Natriuretic Peptide Total Protein 5.2 L Albumin 2.3 L Lipase Urine Color Urine Appearance Urine pH Ur Specific [place] Urine Protein Urine Glucose (UA) Urine Ketones Urine Blood Urine Nitrite Urine Bilirubin Urine Urobilinogen Ur Leukocyte Esterase Urine WBC (Auto) Urine RBC (Auto) Urine Casts (Auto) U Pathogenic Cast Auto U Epithel Cells (Auto) Urine Bacteria (Auto) Blood Type A POSITIVE Antibody Screen Negative 09/28/19 05:45 WBC 9.0 RBC 3.18 L Hgb 10.5 L Hct 31.6 L MCV 99.6 H MCH 33.1 MCHC 33.3 RDW 16.1 H Plt Count 218 MPV 12.4 H Absolute Neuts (auto) 4.4 Neutrophils % 49.0 D Neutrophils % (Manual) Band Neutrophils % Lymphocytes % 40.3 H D Lymphocytes % (Manual) Monocytes % 9.7 Monocytes % (Manual) Eosinophils % 0.3 D Eosinophils % (Manual) Basophils % 0.7 Basophils % (Manual) Myelocytes % (Man) Promyelocytes % (Man) Blast Cells % (Manual) Nucleated RBC % 0 Metamyelocytes Hypochromia Platelet Estimate Platelet Comment Polychromasia Poikilocytosis Anisocytosis Microcytosis Macrocytosis Target Cells Sodium Potassium Chloride Carbon Dioxide Anion Gap BUN Creatinine Est GFR (CKD-EPI)AfAm Est GFR (CKD-EPI)NonAf Random Glucose Uric Acid Calcium Total Bilirubin Direct Bilirubin AST ALT Alkaline Phosphatase C-Reactive Protein B-Natriuretic Peptide Total Protein Albumin Lipase Urine Color Urine Appearance Urine pH Ur Specific [place] Urine Protein Urine Glucose (UA) Urine Ketones Urine Blood Urine Nitrite Urine Bilirubin Urine Urobilinogen Ur Leukocyte Esterase Urine WBC (Auto) Urine RBC (Auto) Urine Casts (Auto) U Pathogenic Cast Auto U Epithel Cells (Auto) Urine Bacteria (Auto) Blood Type Antibody Screen Impression: 1. Painless jaundice associated with multiple hepatic lesions suspicious for malignancy, source to be determined. 2. Hypertension, hypertensive cardiovascular disease, presently normotensive. 3. Status post congestive heart failure currently compensated. 4. Hyperuricemia. 5. Mitral valvular disease with moderate possibly severe mitral regurgitation. 6. History of focal atrial tachycardia with tachycardia induced cardiomyopathy (resolved), status post radiofrequency ablation. 7. Chronic kidney disease. 8. Bullous emphysema. 9. History of bronchiectasis. Recommendations: Patient is at a higher risk of cardiopulmonary events in view of comorbidities but there appears to be no absolute contraindication to the contemplated MRCP. 1. Continue medications as outlined. 2. Nephrology follow-upand patient most likely will require resumption of Kayexalate. 3. Echocardiogram. 4. Further testing is in progress. Twin Gonzalez MD.
--- NOTE | 2019-09-28 09:10 | PN ---
Progress Note (short form) - Note Progress Note: Please review consultation dated 09/27/19 placed in the chart. 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 status post radiofrequency ablation. History of chronic kidney disease stage, bullous emphysema, bronchiectasis. 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 Patient denies having pruritus, nausea, vomiting, no history of abdominal pain or discomfort no history of early satiety and denies any change in bowel habits. Recent abdominal ultrasound had revealed heterogenic echotexture of the liver with multiple solid mass lesions the largest measuring 7.4 in 2 5 cm suspicious for malignancy( please see report). Patient is being evaluated for MRCP. Patient was eating breakfast and continues to deny any GI symptoms. There is no history of dyspnea either at rest or with exertion, no exertional chest pain or discomfort. No paroxysmal nocturnal dyspnea or orthopnea reported. Active Medications Acetaminophen (Tylenol -) 650 mg PO BID PRN PRN Reason: PAIN Allopurinol (Zyloprim -) 100 mg PO BID [facility] Last Admin: 09/28/19 09:12 Dose: 100 mg Amlodipine Besylate (Norvasc -) 5 mg PO DAILY [facility] Last Admin: 09/28/19 09:12 Dose: 5 mg Aspirin (Asa -) 81 mg PO DAILY [facility] Last Admin: 09/28/19 09:12 Dose: 81 mg Heparin Sodium (Porcine) (Heparin -) 5,000 unit SQ TID [facility] Last Admin: 09/28/19 06:14 Dose: 5,000 unit Dextrose/Sodium Chloride (D5-1/2ns -) 1,000 mls @ 75 mls/hr IV ASDIR [facility] Last Admin: 09/28/19 06:16 Dose: 75 mls/hr Metoprolol Succinate (Toprol Xl -) 12.5 mg PO HS [facility] Last Admin: 09/27/19 22:07 Dose: 12.5 mg Pantoprazole Sodium (Protonix -) 40 mg PO BID [facility] Last Admin: 09/28/19 09:11 Dose: 40 mg Prednisone (Deltasone -) 5 mg PO ASDIR JEISON 88-year-old gentleman was in no acute distress, deeply jaundiced, no pallor or cyanosis, no clubbing. Last Vital Signs Temp Pulse Resp BP Pulse Ox 98.3 F 99 H 18 111/56 L 97 09/28/19 06:00 09/28/19 06:00 09/28/19 06:00 09/28/19 06:00 09/27/19 22:00 Neck:upple, no jugular venous distention, carotids were 2+, upstrokes, hepatojugular reflux was negative, carotids were 2+, faint right carotid bruit, no thyromegaly was present. Unable to appreciate supraclavicular or submandibular lymphadenopathy. Heart: PMI was in the fifth intercostal space, no heaves or thrills, S1 and S2 were normal, grade 2/6 decrescendo systolic murmur was heard along the left sternal border and apex that was poorly radiating. No diastolic murmur or gallops were heard. Lungs: Bilateral by basilar crepitations and scattered rhonchi. Abdomen: Soft, protuberant slight right upper quadrant guarding, liver was 2 fingerbreadths below the right costal margin and appeared firm. No splenomegaly was appreciated. no clear-cut ascites on percussion. Bowel sounds were present, no bruits were heard. extremities: No calf tenderness or dependent edema femoral pulses were 2+,, dorsalis pedis pulses were 1+ posterior tibial pulses could not be palpated. Laboratory Results - last 24 hr 09/27/19 09/27/19 09/27/19 15:15 15:15 15:15 WBC 10.5 H RBC 3.36 L Hgb 10.9 L Hct 33.6 L MCV 99.7 H MCH 32.5 MCHC 32.6 RDW 16.8 H Plt Count 242 MPV 12.2 H Absolute Neuts (auto) Neutrophils % Hot Roll Inspector Neutrophils % (Manual) 89.0 H Band Neutrophils % 0.0 Lymphocytes % [employer] Inspector Lymphocytes % (Manual) 3.0 L D Monocytes % [employer] Inspector Monocytes % (Manual) 8 D Eosinophils % [employer] Inspector Eosinophils % (Manual) 0.0 Basophils % Hot [employer] Inspector Basophils % (Manual) 0.0 Myelocytes % (Man) 0 Promyelocytes % (Man) 0 Blast Cells % (Manual) 0 Nucleated RBC % 0 Metamyelocytes 0 Hypochromia 1+ Platelet Estimate Normal Platelet Comment No clumping noted Polychromasia 0 Poikilocytosis 0 Anisocytosis 2+ Microcytosis 0 Macrocytosis 1+ Target Cells 1+ Sodium 141 Potassium 4.7 Chloride 108 H Carbon Dioxide 20 L Anion Gap 13 BUN 59.4 H Creatinine 4.0 H Est GFR (CKD-EPI)AfAm 14.41 Est GFR (CKD-EPI)NonAf 12.43 Random Glucose 98 Uric Acid Calcium 9.3 Total Bilirubin 12.7 H Direct Bilirubin AST 599 H ALT 296 H Alkaline Phosphatase 1013 H C-Reactive Protein B-Natriuretic Peptide 553.6 H Total Protein 5.9 L Albumin 2.6 L Lipase 901 H Urine Color Dk yellow Urine Appearance Turbid Urine pH 5.0 Ur Specific [place] 1.016 Urine Protein 2+ H Urine Glucose (UA) Negative Urine Ketones Negative Urine Blood 3+ H Urine Nitrite Negative Urine Bilirubin 3+ H Urine Urobilinogen 0.2 Ur Leukocyte Esterase Negative Urine WBC (Auto) 7 Urine RBC (Auto) 5-10 Urine Casts (Auto) 21 U Pathogenic Cast Auto 0-2 U Epithel Cells (Auto) 2.0 Urine Bacteria (Auto) 1.0 Blood Type Antibody Screen 09/27/19 09/27/19 09/28/19 16:35 16:35 05:45 WBC RBC Hgb Hct MCV MCH MCHC RDW Plt Count MPV Absolute Neuts (auto) Neutrophils % Neutrophils % (Manual) Band Neutrophils % Lymphocytes % Lymphocytes % (Manual) Monocytes % Monocytes % (Manual) Eosinophils % Eosinophils % (Manual) Basophils % Basophils % (Manual) Myelocytes % (Man) Promyelocytes % (Man) Blast Cells % (Manual) Nucleated RBC % Metamyelocytes Hypochromia Platelet Estimate Platelet Comment Polychromasia Poikilocytosis Anisocytosis Microcytosis Macrocytosis Target Cells Sodium 140 Potassium 4.2 Chloride 109 H Carbon Dioxide 20 L Anion Gap 11 BUN 55.1 H Creatinine 3.6 H Est GFR (CKD-EPI)AfAm 16.36 Est GFR (CKD-EPI)NonAf 14.12 Random Glucose 93 Uric Acid 7.2 Calcium 9.1 Total Bilirubin 11.9 H Direct Bilirubin 10.5 H 10.2 H AST 534 H ALT 261 H Alkaline Phosphatase 993 H C-Reactive Protein 4.8 H B-Natriuretic Peptide Total Protein 5.2 L Albumin 2.3 L Lipase Urine Color Urine Appearance Urine pH Ur Specific [place] Urine Protein Urine Glucose (UA) Urine Ketones Urine Blood Urine Nitrite Urine Bilirubin Urine Urobilinogen Ur Leukocyte Esterase Urine WBC (Auto) Urine RBC (Auto) Urine Casts (Auto) U Pathogenic Cast Auto U Epithel Cells (Auto) Urine Bacteria (Auto) Blood Type A POSITIVE Antibody Screen Negative 09/28/19 05:45 WBC 9.0 RBC 3.18 L Hgb 10.5 L Hct 31.6 L MCV 99.6 H MCH 33.1 MCHC 33.3 RDW 16.1 H Plt Count 218 MPV 12.4 H Absolute Neuts (auto) 4.4 Neutrophils % 49.0 D Neutrophils % (Manual) Band Neutrophils % Lymphocytes % 40.3 H D Lymphocytes % (Manual) Monocytes % 9.7 Monocytes % (Manual) Eosinophils % 0.3 D Eosinophils % (Manual) Basophils % 0.7 Basophils % (Manual) Myelocytes % (Man) Promyelocytes % (Man) Blast Cells % (Manual) Nucleated RBC % 0 Metamyelocytes Hypochromia Platelet Estimate Platelet Comment Polychromasia Poikilocytosis Anisocytosis Microcytosis Macrocytosis Target Cells Sodium Potassium Chloride Carbon Dioxide Anion Gap BUN Creatinine Est GFR (CKD-EPI)AfAm Est GFR (CKD-EPI)NonAf Random Glucose Uric Acid Calcium Total Bilirubin Direct Bilirubin AST ALT Alkaline Phosphatase C-Reactive Protein B-Natriuretic Peptide Total Protein Albumin Lipase Urine Color Urine Appearance Urine pH Ur Specific [place] Urine Protein Urine Glucose (UA) Urine Ketones Urine Blood Urine Nitrite Urine Bilirubin Urine Urobilinogen Ur Leukocyte Esterase Urine WBC (Auto) Urine RBC (Auto) Urine Casts (Auto) U Pathogenic Cast Auto U Epithel Cells (Auto) Urine Bacteria (Auto) Blood Type Antibody Screen Impression: 1. Painless jaundice associated with multiple hepatic lesions suspicious for malignancy, source to be determined. 2. Hypertension, hypertensive cardiovascular disease, presently normotensive. 3. Status post congestive heart failure currently compensated. 4. Hyperuricemia. 5. Mitral valvular disease with moderate possibly severe mitral regurgitation. 6. History of focal atrial tachycardia with tachycardia induced cardiomyopathy (resolved), status post radiofrequency ablation. 7. Chronic kidney disease. 8. Bullous emphysema. 9. History of bronchiectasis. Recommendations: Patient is at a higher risk of cardiopulmonary events in view of comorbidities but there appears to be no absolute contraindication to the contemplated MRCP. 1. Continue medications as outlined. 2. Nephrology follow-upand patient most likely will require resumption of Kayexalate. 3. Echocardiogram. 4. Further testing is in progress. Twin Gonzalez MD.
[2019-09-28] MEDS: PANTOPRAZOLE 40 MG TABLET PO SCH (09:11)
[2019-09-28] MEDS: ALLOPURINOL 100 MG TABLET (FP) PO SCH (09:12)
[2019-09-28] MEDS ORDERED: metoPROLOL SUCCINATE 25 MG TAB.SR.24H (FP) PO SCH (10:00)
[2019-09-28] MEDS ORDERED: amLODIPine BESYLATE 5 MG TABLET (FP) PO SCH (10:00)
[2019-09-28] MEDS ORDERED: ASPIRIN 81 MG CHEWABLE TABLETS PO SCH (10:00)
[2019-09-28 12:01] LABS: ANISOCYTOSIS 2+; MACROCYTOSIS 1+; OVALOCYTE 1+; PLATELET ESTIMATE NORMAL; TARGET CELLS 2+; TEAR DROP CELLS 1+
--- NOTE | 2019-09-28 12:23 | DS ---
Physical Examination Vital Signs: Vital Signs Temperature 97.9 F 09/28/19 10:00 Pulse Rate 103 H 09/28/19 10:00 Respiratory Rate 18 09/28/19 10:00 Blood Pressure 120/68 09/28/19 10:00 O2 Sat by Pulse Oximetry (%) 97 09/28/19 09:00 Findings/Remarks: see progress note from today d/w GI dr Rucker pt was accepted at [facility] by dr Michele Grey for cholestasis management possible metallic stent placement - d/w pt and daughter at bedside they agreed with plan hold sq heparin for ERCP in am MRI pending to be done and will send results to [facility] when available Labs: CBC, BMP 09/28/19 05:45 09/28/19 05:45 Discharge Summary Problems reviewed: Yes Reason For Visit: JAUNDICE Current Active Problems A-fib (Acute) Acquired dilation of common bile duct (Acute) Acute renal failure (Acute) 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 (Acute) Emphysema of lung (Acute) Gallbladder mass (Acute) H/O paroxysmal supraventricular tachycardia (Acute) History of adenomatous polyp of colon (Acute) Hydronephrosis (Acute) Hyperlipidemia (Acute) Hypertension (Acute) Hypotension (Acute) Liver masses (Acute) Obstructive jaundice (Acute) Painless jaundice (Acute) Renal failure (ARF), acute on chronic (Acute) Renal insufficiency (Acute) Procedures: Principal: 88 YOM ASHD AFib HTN CHF COPD admitted with cholestasis and liver masses and ARF Other Procedures: seen by GI dr Carlson; CAP CT and MRCP done (results pending at this point); cardiology and renal eval also Hospital Course: cholestasis - pt to be transferred to [facility] for further management dr Grey accepted pt, possible metallic stent and biopsy - further rec to follow after biopsy report available; heme onc eval and GI f/u after DC from d/w pt and daughter Condition: Guarded - Instructions Diet, Activity, Other Instructions: transfer to [facility] / dr Michele GREY eval for cholestasis, metallic stent placement f/u PCP GI renal and cardiology in 1-2 weeks after DC from Referrals: Bebeto Hernandez MD [Primary Care Provider] - Nirav Frazier MD [Staff Physician] - Bharti Rucker MD [Staff Physician] - Twin Medina MD [Staff Physician] - Disposition: TRANSFER ACUTE CARE/OTHER HOSP - Home Medications Comprehensive Discharge Medication List: Ambulatory Orders Amlodipine Besylate 5 mg PO DAILY 08/13/17 Aspirin [ASA -] 81 mg PO DAILY 08/13/17 Sodium Polystyrene Sulfonate [Kayexalate -] 15 gm PO WEEKLY 08/13/17 Allopurinol [Zyloprim -] 100 mg PO BID #60 tablet 08/16/17 predniSONE [Deltasone -] See Taper PO ASDIR #39 tablet 08/16/17 Metoprolol Succinate [Toprol XL -] 12.5 mg PO DAILY tab.sr.24h 09/28/19 Pantoprazole Sodium [Protonix -] 40 mg PO BID tablet.ec 09/28/19
--- NOTE | 2019-09-28 12:42 | EKG ---
Test Reason : Blood Pressure : / mmHG Vent. Rate : 105 BPM Atrial Rate : 105 BPM P-R Int : 150 ms QRS Dur : 084 ms QT Int : 342 ms P-R-T Axes : 030 043 029 degrees QTc Int : 452 ms SINUS TACHYCARDIA WITH OCCASIONAL PREMATURE VENTRICULAR COMPLEXES POSSIBLE LEFT ATRIAL ENLARGEMENT BORDERLINE ECG WHEN COMPARED WITH ECG OF 26-SEP-2019 14:44, NO SIGNIFICANT CHANGE WAS FOUND Confirmed by JESENIA SUNG MD ([id number]) on 09/28/2019 12:42:16 PM Referred By: Confirmed By:JESENIA SUNG MD
[2019-09-28 13:08] VITALS: BP 132/73; PULSE 105; TEMP 98.8
[2019-09-29 08:07] LABS: CARCINOEMBRYONIC ANTIGEN 327.9 ng/mL (0.0-4.7)
[2019-09-29 22:07] LABS: HEP B CORE AB, TOT Positive (Negative)
== END 2019-09-28 13:40 | disposition short-term general hospital (02) | DRG 445 ==
LOC: JER 14:29 → JERBED 17:14 → J4S 20:13
PROVIDERS: ADMIT Specialist; ATTEND Specialist
DX: K83.1 Obstruction of bile duct (principal); R17 Unspecified jaundice; N17.9 Acute kidney failure, unspecified; N13.1 Hydronephrosis with ureteral stricture, not elsewhere classified; N13.30 Unspecified hydronephrosis; I13.0 Hypertensive heart and chronic kidney disease with heart failure and stage 1 through stage 4 chronic kidney disease, or unspecified chronic kidney disease; M10.9 Gout, unspecified; I48.91 Unspecified atrial fibrillation; E78.5 Hyperlipidemia, unspecified; J44.9 Chronic obstructive pulmonary disease, unspecified; K57.90 Diverticulosis of intestine, part unspecified, without perforation or abscess without bleeding; N40.0 Benign prostatic hyperplasia without lower urinary tract symptoms; K83.8 Other specified diseases of biliary tract; K86.89 Other specified diseases of pancreas; K82.8 Other specified diseases of gallbladder; R16.0 Hepatomegaly, not elsewhere classified; N18.9 Chronic kidney disease, unspecified; I50.9 Heart failure, unspecified; I34.0 Nonrheumatic mitral (valve) insufficiency; I25.10 Atherosclerotic heart disease of native coronary artery without angina pectoris
CPT/HCPCS: 36415; 71045-TC-FY; 71046-TC-FY; 71250-TC; 74176-TC; 74181-TC; 76700-TC; 80053; 81003; 82105; 82150; 82248; 82378; 82728; 83540; 83550; 83690; 83880; 84550; 85025; 85610; 86140; 86301; 86704; 86706; 86707; 86708; 86709; 86850; 86900; 86901; 87340; 93005; 93010; 99284-25; J1644; Q9967